=== PATIENT | female | born 1965 | race Caucasian/White ===

== ENCOUNTER 2017-03-15 14:41 | Inpatient (IN) | payer OTHER ==
[~2017-03-15] VITALS: Ht 172.7 cm; Wt 74.8 kg
[~2017-03-15 14:41] MED LIST: ALBUTEROL SULFAT3 M1 INH; PREDNISONE10 MG PO; PRILOSEC 20MG C20 MG PO; SINGULAIR10 MG PO; SPIRIVA1 PUF INH; SYMBICORT 160/41 PUF INH; Senokot S PO; TYLENOL TAB 32325 MG PO
--- NOTE | 2017-03-15 14:44 | NUR ---
O2 90% HR 114
--- NOTE | 2017-03-15 14:54 | NUR ---
PT TO ED FOR C/C OF DIFFICULTY BREATHING SINCE SATURDAY. [facility] TODAY AND GIVEN IV SOLUMEDROL 40MG OF SOLUMEDROL AND A NEB TREATMENT WITHOUT IMPROVEMENT. PT WAS 89% ON RA OVER THERE. +PRODUCTIVE COUGH WITH GREEN PHLEGM. SUBJECTIVE LOW GRADE TEMPS AT HOME. WORSE AT NIGHT.
--- NOTE | 2017-03-15 15:09 | ED DYSPNEA/ASTHMA COMPLAINT ---
History of Present Illness General Chief Complaint: Dyspnea (COPD, CHF, Other) Stated Complaint: SOB Source: patient Exam Limitations: no limitations Vital Signs & Intake/Output Vital Signs & Intake/Output Vital Signs Date Time Temp Pulse Resp B/P B/P Pulse O2 O2 Flow FiO2 Mean Ox Delivery Rate 03/15 2220 98.4 90 18 120/80 92 Nasal 3.0L Cannula 03/15 2018 92 Nasal 3.0L Cannula 03/15 1948 Nasal 3.0L Cannula 03/15 1730 98.4 86 20 121/80 91 Nasal 3.0L Cannula 03/15 1610 97.8 90 18 125/77 92 03/15 1556 Nasal 2.0L Cannula 03/15 1520 88 Room Air Room Air 03/15 1514 90 Room Air Room Air 03/15 1451 98.5 97 15 138/89 90 Room Air Room Air Triage Note: PT TO ED FOR C/C OF DIFFICULTY BREATHING SINCE SATURDAY. [facility] TODAY AND GIVEN IV SOLUMEDROL 40MG OF SOLUMEDROL AND A NEB TREATMENT WITHOUT IMPROVEMENT. PT WAS 89% ON RA OVER THERE. +PRODUCTIVE COUGH WITH GREEN PHLEGM. SUBJECTIVE LOW GRADE TEMPS AT HOME. WORSE AT NIGHT. Triage Nurses Notes Reviewed? yes Onset: Gradual Timing: recent history Severity: severe Prior Episodes/Possible Cause: chronic episodes HPI: Patient is a 51-year-old female with a past medical history of asthma and suspecting COPD, renal cell carcinoma with right nephrectomy who presents emergency and at approximately one week ago she began complaining of a gradual onset of mild cough sore throat and prodromal symptoms of low-grade fever in which she was evaluated on Saturday 5 days ago at urgent care facility was prescribed doxycycline steroids and Tessalon Perles and patient presents to the emergency room stating that she feels much worse. Patient complains of persistent dry cough wheezing pleuritic chest pain shortness of breath and generalized weakness and fatigue. Patient tried multiple nebulizer treatments and Symbicort at home with no relief of symptoms. Patient is an every day smoker Patient does state that her executive search consultant Gerber Javier MD Denies any leg swelling hemoptysis ARM pain jaw pain palpitations (CATIE JOHNSON) Allergies Coded Allergies: Penicillins (CHILDHOOD REACTION 03/15/17) duloxetine (UNKNOWN 03/15/17) lamotrigine (From LAMICTAL) (UNKNOWN 03/15/17) ziprasidone (UNKNOWN 03/15/17) Reconcile Medications Albuterol Sulfate (Proair Hfa) 90 MCG HFA.AER.AD 2 PUF INH Q4-6 PRN PRN COPD (Reported) Budesonide/Formoterol Fumarate (Symbicort 160-4.5 Mcg Inhaler) 160 MCG-4.5 MCG/ ACTUATION HFA.AER.AD 2 PUF INH BID COPD (Reported) Loratadine (Claritin) 10 MG TABLET 1 TAB PO DAILY ALLERGIES (Reported) (GENA MCKNIGHT,RENEE) Past History Travel History Traveled to [place] past 21 day No Medical History Any Pertinent Medical History? see below for history Neurological: NONE EENT: NONE Cardiovascular: NONE Respiratory: asthma Gastrointestinal: NONE Hepatic: NONE Renal: KIDNEY RIGHT NEPHRECTOMY Musculoskeletal: NONE Psychiatric: NONE Endocrine: NONE Blood Disorders: NONE Cancer(s): NONE LAW OFFICE MANAGER/Reproductive: NONE History of MRSA: No History of VRE: No History of CDIFF: No Pneumonia Vaccine: 02/05/12 Surgical History Surgical History: non-contributory Psychosocial History Who do you live with Daughter Services at Home None What is your primary language Maori Tobacco Use: Current Daily Use Daily Tobacco Use Amount/Type: => 5 Cigarettes daily ETOH Use: denies use Illicit Drug Use: denies illicit drug use Family History Family History, If Any: Relation not specified for: *No pertinent family history Hx Contributory? No (CATIE JOHNSON) Review of Systems Review of Systems Constitutional: Reports: see HPI. EENTM: Reports: no symptoms. Respiratory: Reports: see HPI, cough, short of breath, wheezing. Cardiovascular: Reports: see HPI. GI: Reports: no symptoms. Genitourinary: Reports: no symptoms. Musculoskeletal: Reports: no symptoms. Skin: Reports: no symptoms. Neurological/Psychological: Reports: no symptoms. Hematologic/Endocrine: Reports: no symptoms. Immunologic/Allergic: Reports: no symptoms. All Other Systems: Reviewed and Negative (CATIE JOHNSON) Physical Exam Physical Exam General Appearance: no apparent distress, alert, comfortable Respiratory: chest non-tender, no respiratory distress, NOTED PERSISTING COUGHING WITH POSTERIOR BILATERAL AUDITORY WHEEZING Comments: Well-developed well-nourished person in no acute distress HEENT: Normal EENT exam, Neck: Supple, no lymphadenopathy, normal range of motion without pain or tenderness Back: Nontender, no CVA tenderness. Cardiovascular: Regular rate and rhythms no murmurs rubs or gallops, normal JVP Abdomen: Soft, nontender nondistended, no appreciable organomegaly. Normal bowel sounds. No ascites Extremity: No edema, no calf tenderness to palpation, normal and equal pulses. Neuro: Alert oriented x3, motor sensory normal, Skin: No appreciable rash on exposed skin, skin is warm and dry. Psych: Mood and affect is normal, memory and judgment is normal. Core Measures ACS in differential dx? No Severe Sepsis Present: No Septic Shock Present: No (PRUDENCIO HAIDER,CATIE) Progress Differential Diagnosis: asthma, AMI, bronchitis, costochondritis, CHF, COPD, musculoskeletal pain, pericarditis, pulmonary embolism, pneumonia, pneumothorax, rib fracture, unstable angina Plan of Care: Orders Procedure Date/time Status Heart Healthy Diet 03/16 B Active CBC WITHOUT DIFFERENTIAL 03/16 0600 Active BASIC ELECTROLYTES PLUS BUN&CR 03/16 06 Active Vital Signs 03/15 2003 Active Teach/Educate 03/15 2003 Active Pain Treatment and Response 03/15 2003 Active Nutritional Intake, Monitor 03/15 2003 Active Isolation 03/15 2003 Active Intake & Output 03/15 2003 Active Patient Care Conference 03/15 2003 Active Activity/Ambulation 03/15 2003 Active RT: Reevaluation 03/15 1947 Active RT: Evaluation 03/15 194 Active Pathway - chart 03/15 1911 Active OXYGEN SETUP (GEN) 03/15 1711 Complete TRC EVALUATION (GEN) 03/15 1710 Complete Pathway - chart 03/15 1710 Active Patient Data 03/15 1708 Active ED Holding Orders 03/15 1702 Active Admit to inpatient 03/15 1702 Active Vital Signs 03/15 1702 Active Code Status 03/15 1702 Active BLOOD CULTURE 03/15 1646 Active LOWER RESPIRATORY CULTURE 03/15 1621 Active EKG 03/15 1606 Active TROPONIN LEVEL 03/15 1523 Complete COMPREHENSIVE METABOLIC PANEL 03/15 1523 Complete CBC WITHOUT DIFFERENTIAL 03/15 1523 Complete Intake & Output 03/15 1520 Active THERAPIST ORDERS 03/15 UNK Complete House Staff 03/15 UNK Active VTE Mechanical Prophylaxis 03/15 UNK Active Vital Signs 03/15 UNK Complete Current Medications Sig/Vahe Start time Last Medication Dose Stop Time Status Admin Azithromycin 500 MG DAILY 03/16 1000 AC (Zithromax) Sodium Chloride 250 ML (Normal Saline 0.9%) Loratadine 10 MG DAILY 03/16 1000 AC (Claritin) Budesonide/ 2 PUF BID 03/15 2200 AC 03/15 Formoterol Fumarate 2147 (Symbicort) Heparin Sodium 5,000 UNIT Q8 03/15 2200 AC (Porcine) Methylprednisolone 40 MG Q8 03/15 2200 AC 03/15 (Solumedrol) 214 Albuterol Sulfate 3 ML EVERY 4 HRS/AWAKE 03/15 2000 AC 03/15 (Proventil) 194 Ipratropium [place] 2.5 ML EVERY 4 HRS/AWAKE 03/15 2000 AC 03/15 (Atrovent) 194 Acetaminophen 650 MG Q6 PRN 03/15 1915 AC (Tylenol) Morphine Sulfate 0.5 MG Q4-6 PRN PRN 03/15 1915 AC (Morphine) Oxycodone HCl 5 MG Q6 PRN 03/15 1915 AC (Roxicodone) Guaifenesin/Codeine 10 ML Q6P PRN 03/15 183 AC 03/15 Phosphate 2028 (Robitussin AC) Nicotine 21 MG DAILY 03/15 1819 AC 03/15 (Nicoderm) 183 Omeprazole 40 MG DAILY AC 03/15 181 AC (Prilosec) Albuterol Sulfate 2 PUF Q4-6 PRN PRN 03/15 174 AC (Ventolin) Laboratory Tests 03/15/17 1530: Anion Gap 11, Estimated GFR > 60, BUN/Creatinine Ratio 28.9 H, Glucose 102 H, Calcium 10.1, Total Bilirubin 0.5, AST 25, ALT 42, Alkaline Phosphatase 117, Troponin I < 0.01, Total Protein 7.0, Albumin 4.4, Globulin 2.6, Albumin/ Globulin Ratio 1.7, CBC w Diff NO MAN DIFF REQ, RBC 4.82, MCV 84.6, MCH 27.9, RDW 14.1, MPV 6.3 L, Gran % 90.9 H, Lymphocytes % 7.3 L, Monocytes % 1.7, Eosinophils % 0, Basophils % 0.1, Absolute Granulocytes 12.8 H, Absolute Lymphocytes 1.0 L, Absolute Monocytes 0.2, Absolute Eosinophils 0, Absolute Basophils 0, PUBS MCHC 33.0 Microbiology 03/15 1730 BLOOD: Blood Culture - RECD 03/15 1705 BLOOD: Blood Culture - RECD 03/15 1621 LOWER RESP: Respiratory Culture - ORD 03/15 1621 LOWER RESP: Gram Stain - ORD Patient does state that she has no diagnosis of COPD however due to history of present illness and patient's smoking history there is suspicion thereof. Patient currently is resting comfortably at bedside 02 supplementation was provided to patient where she improved her resting 02. Patient had nebulizer treatments and steroids outpatient prior to arrival this week with no improvement in symptoms in which patient has felt outpatient treatment. Patient will be admitted for concerns of COPD and bronchitis (CATIE JOHNSON) Diagnostic Imaging: Viewed by Me: Radiology Read. Radiology Impression: no acute abnormality Initial ED EKG: SINUS RHYTHM NOTED A 82 BPM Comments: PATIENT: KWADWO RECIO PRESENT AGE: 51 PATIENT ACCOUNT NO: [id number] : 67 LOCATION: [facility] ORDERING PHYSICIAN: CATIE HAIDER SERVICE DATE: 03/15/17 EXAM TYPE: RAD - XRY-CHEST XRAY, PA AND LATERAL EXAMINATION: XR CHEST CLINICAL INFORMATION: Productive cough, hypoxia COMPARISON: 03/22/2015 TECHNIQUE: 2 views of the chest were obtained. FINDINGS: The cardiomediastinal silhouette is normal. There is some bronchial wall thickening with no clear infiltrate identified. No pleural effusion and no pneumothorax. No acute osseous abnormalities. IMPRESSION: Bronchial wall thickening suggests underlying bronchitis, no focal consolidation. DICTATED BY: GARY CARR MD DATE/TIME DICTATED:03/15/171607 (CATIE JOHNSON) Departure Departure Disposition: STILL A PATIENT Condition: Stable Referrals: ANKIT HUERTA MD (PCP/Family) Departure Forms: Customer Survey General Discharge Information Admission Note Spoke With: DENEEN HAGAN MD Documentation of Exam: Documentation of any treatments & extenuating circumstances including Concerns Regarding Discharge (functional status, medication knowledge or non-compliance, living conditions, etc.) that warrant an admission rather than observation: [ Discussed patient with Dr. Hagan who agrees with general medicine admission which patient requires IV steroids, repeat nebulizer treatments, antitussive medication and pulmonary consultation. Patient has FAILED outpatient treatment and outpatient treatment would be medically harmful] (CATIE JOHNSON) Departure Clinical Impression Primary Impression: COPD (chronic obstructive pulmonary disease) Secondary Impressions: Bronchitis PA/LOGISTIC MANAGER Co-Sign Statement Statement: ED Attending supervision documentation- [X] I saw and evaluated the patient. I have also reviewed all the pertinent lab results and diagnostic results. I agree with the findings and the plan of care as documented in the PA's/LOGISTIC MANAGER's documentation. [X] I have reviewed the ED Record and agree with the PA's/LOGISTIC MANAGER's documentation. [] Additions or exceptions (if any) to the PAs/LOGISTIC MANAGER's note and plan are summarized below: [] (GENA MCKNIGHT,RENEE) Critical Care Note Critical Care Note Critical Care Time: 30-74 min (CATIE JOHNSON)
--- NOTE | 2017-03-15 15:17 | NUR ---
PT NOTED TO BE SLIGHTLY HYPOXIC 88-89% ON RA AFTER AMBULATION FO APPROX 3 FEET. PT HAS EXPIRATORY WHEEZES BILATERALLY. PT PLACED ON 2L NC OXYGEN WITH IMPROVEMENT TO 92%. RESP CALLED FOR TREATMENT.
--- NOTE | 2017-03-15 15:34 | NUR ---
BLOOD WORK DRAWN AND SENT TO LAB NOW: SST, LAV, BLUE, DRAKE TOPS. XRAY AT BEDSIDE TO TAKE PT FOR TEST.
--- NOTE | 2017-03-15 15:36 | NUR ---
PT REPORTS THAT SHE HAS BEEN ON 20MG PREDNISONE BID AND DOXYCYCLINE SINCE SATURDAY WITHOUT RELIEF.
--- NOTE | 2017-03-15 15:41 | NUR ---
VERO STAPLES ORDERED PER PROVIDER PERMISSION
[2017-03-15 15:44] LABS: ABSOLUTE BASOPHIL COUNT 0 /CUMM (0.0-0.2); ABSOLUTE EOSINOPHIL COUNT 0 /CUMM (0.0-0.7); ABSOLUTE GRANULOCYTE CT 12.8 /CUMM (1.4-6.5); ABSOLUTE MONOCYTE COUNT 0.2 /CUMM (0.10-0.60); BASOPHIL % 0.1 % (0.0-2.0); EOSINOPHIL % 0 % (0-5); HEMATOCRIT 40.7 % (37-47); MEAN CORPUSCULAR HGB 27.9 PG (27.0-31.0); MEAN CORPUSCULAR VOLUME 84.6 FL (81.0-99.0); MEAN PLATELET VOLUME 6.3 FL (7.4-10.4); PLATELET COUNT 220 /CUMM (130-400); RBC DISTRIBUTION WIDTH 14.1 % (11.5-14.5); RED BLOOD CELL CT 4.82 /CUMM (4.20-5.40); WHITE BLOOD CELL COUNT 14.1 /CUMM (4.8-10.8)
[2017-03-15 15:47] LABS: GRANULOCYTE % 90.9 % (42.2-75.2)
--- NOTE | 2017-03-15 16:15 | RADIOLOGY REPORT ---
EXAMINATION: XR CHEST CLINICAL INFORMATION: Productive cough, hypoxia COMPARISON: 03/22/2015 TECHNIQUE: 2 views of the chest were obtained. FINDINGS: The cardiomediastinal silhouette is normal. There is some bronchial wall thickening with no clear infiltrate identified. No pleural effusion and no pneumothorax. No acute osseous abnormalities. IMPRESSION: Bronchial wall thickening suggests underlying bronchitis, no focal consolidation.
--- NOTE | 2017-03-15 17:01 | History & Physical ---
MYRIAM MCKNIGHT,ESTHER 03/15/17 1701: General Information and HPI MD Statement: I have seen and personally examined KWADWO RECOI and documented this H&P. The patient is a 51 year old F who presented with a patient stated chief complaint of [shortness of breath]. Source of Information: patient Exam Limitations: no limitations History of Present Illness: Patient is a 51-year-old current active smoker female with past medical history significant for asthma, renal cell carcinoma status post right nephrectomy, COPD (follows Dr. javier, not on home oxygen), came to the ED with progressive worsening of shortness of breath, prior to cough, low-grade fevers. Symptoms started a week ago gradually with mild cough, sore throat, with a prodrome of low-grade fever. Patient was evaluated in urgent care on Saturday (03/11/17) where she was given IV Solu-Medrol 40 mg, Tessalon Perles, doxycycline and steroids to home. Her condition remained to get worse still had progressive cough with low- grade fevers and pleuritic chest pain. Patient does report seasonal allergies which could be the inciting event. She smokes one pack per day for the past 30 years, stopped since Saturday. She denies any sick contacts, travels, headaches. Current active smoker Family history of multiple sclerosis in mother, of pneumonia, sister with asthma Allergies/Medications Allergies: Coded Allergies: Penicillins (CHILDHOOD REACTION 03/15/17) duloxetine (UNKNOWN 03/15/17) lamotrigine (From LAMICTAL) (UNKNOWN 03/15/17) ziprasidone (UNKNOWN 03/15/17) Home Med list Albuterol Sulfate (Proair Hfa) 90 MCG HFA.AER.AD 2 PUF INH Q4-6 PRN PRN COPD (Reported) Budesonide/Formoterol Fumarate (Symbicort 160-4.5 Mcg Inhaler) 160 MCG-4.5 MCG/ ACTUATION HFA.AER.AD 2 PUF INH BID COPD (Reported) Loratadine (Claritin) 10 MG TABLET 1 TAB PO DAILY ALLERGIES (Reported) Compliance With Home Meds: GOOD Past History Travel History Traveled to [place] past 21 day No (in the lower) Medical History Any Pertinent Medical History? unobtainable Neurological: NONE EENT: NONE Cardiovascular: NONE Respiratory: asthma Gastrointestinal: NONE Hepatic: NONE Renal: KIDNEY RIGHT NEPHRECTOMY Musculoskeletal: NONE Psychiatric: NONE Endocrine: NONE Blood Disorders: NONE Cancer(s): NONE PAPER TUBE GRADER/Reproductive: NONE History of MRSA: No History of VRE: No History of CDIFF: No Pneumonia Vaccine: 02/05/12 Surgical History Surgical History: non-contributory Past Family/Social History Family History Relations & Conditions if any Relation not specified for: *No pertinent family history Psychosocial History Past Psychosocial History Unobtainable at this time Where do you live? Home Who Do You Live With? self Services at Home: None Smoking Status: Current Everyday Smoker (is) ETOH Use: denies use Illicit Drug Use: denies illicit drug use Functional Ability ADLs Independent: dressing, eating, toileting, bathing. Ambulation: independent IADLs Independent: shopping, housework, finances, food prep, telephone, transportation , medication admin. Review of Systems Review of Systems Constitutional: Reports: see HPI. EENTM: Reports: see HPI (no acute). Cardiovascular: Reports: chest pain. Respiratory: Reports: cough, short of breath, sputum production. GI: Reports: see HPI. Genitourinary: Reports: see HPI. Musculoskeletal: Reports: see HPI. Exam & Diagnostic Data Last 24 Hrs of Vital Signs/I&O Vital Signs Date Time Temp Pulse Resp B/P B/P Pulse O2 O2 Flow FiO2 Mean Ox Delivery Rate 03/15 1948 Nasal 3.0L Cannula 03/15 1730 98.4 86 20 121/80 91 Nasal 3.0L Cannula 03/15 1610 97.8 90 18 125/77 92 03/15 1556 Nasal 2.0L Cannula 03/15 1520 88 Room Air Room Air 03/15 1514 90 Room Air Room Air 03/15 1451 98.5 97 15 138/89 90 Room Air Room Air Intake & Output 03/15 1600 03/15 0800 03/15 0000 Intake Total 0 Output Total Balance 0 Intake, Oral 0 Patient 74.843 kg Weight Weight Reported by Patient Measurement Method Physical Exam General Appearance Alert, Oriented X3, Cooperative, No Acute Distress Skin No Rashes, No Breakdown HEENT Atraumatic, PERRLA, EOMI Neck Supple, No JVD Cardiovascular Normal S1, Normal S2 Lungs rhonchus bilaterally (Prominent on right side) with significant wheezing Abdomen Normal Bowel Sounds, Soft, No Tenderness Neurological Normal Gait, Normal Speech, Strength at 5/5 X4 Ext, Normal Tone, Sensation Intact Extremities No Clubbing, No Cyanosis, No Edema Vascular Normal Pulses, Pulses Symmetrical Last 24 Hrs of Labs/Francesco: Laboratory Tests 03/15/17 1530: Anion Gap 11, Estimated GFR > 60, BUN/Creatinine Ratio 28.9 H, Glucose 102 H, Calcium 10.1, Total Bilirubin 0.5, AST 25, ALT 42, Alkaline Phosphatase 117, Troponin I < 0.01, Total Protein 7.0, Albumin 4.4, Globulin 2.6, Albumin/ Globulin Ratio 1.7, CBC w Diff NO MAN DIFF REQ, RBC 4.82, MCV 84.6, MCH 27.9, RDW 14.1, MPV 6.3 L, Gran % 90.9 H, Lymphocytes % 7.3 L, Monocytes % 1.7, Eosinophils % 0, Basophils % 0.1, Absolute Granulocytes 12.8 H, Absolute Lymphocytes 1.0 L, Absolute Monocytes 0.2, Absolute Eosinophils 0, Absolute Basophils 0, PUBS MCHC 33.0 Microbiology 03/15 1730 BLOOD: Blood Culture - RECD 03/15 1705 BLOOD: Blood Culture - RECD 03/15 1621 LOWER RESP: Respiratory Culture - ORD 03/15 1621 LOWER RESP: Gram Stain - ORD Assessment/Plan Assessment: Patient is a 16-year-old female with significant history of asthma, COPD and seasonal allergies presented with progressive worsening of shortness of breath productive cough and low-grade fevers. On examination significant wheezing with right-sided rhonchi present. Vitals Tmax of 98.5, pulse 97, on 3 L nasal cannula. Leukocytosis with white count of 14. Chest x-ray significant for bronchial wall thickening suggestive of bronchitis without any focal consolidation. At this point I lean towards COPD exacerbation from acute bronchitis. Admitted to general medicine floor COPD exacerbation in the setting of acute bronchitis * Chest x-ray ruled out any consolidation, didn't show bronchial thickening * Received IV Solu-Medrol 125 mg, inhalers, IV mag sulfate in the ED, started on 40 mg every 8 hours * IV azithromycin * Robitussin, guaifenesin for productive cough * TRC/nebs * Pulmonary consult in a.m. (alejandro Javier MD) GERD * Continue omeprazole Nicotine dependence * Nicotine patch 21 mg daily * History of 1 pack per day for the past 30 years Seasonal allergies * Continue daily loratadine Pain control * Tylenol/morphine sulfate 0.5 mg every 4-6 IV/oxycodone 5 mg every 6 when necessary DVT prophylaxis * Subcutaneous heparin CODE STATUS * Full code As Ranked By This Provider Problem List: 1. ASTHMA EXACERBATION 2. RENAL CELL CA 3. Asthma 4. COPD (chronic obstructive pulmonary disease) 5. Bronchitis Core Measures/Miscellaneous Acute Coronary Syndrome ACS Diagnosis: No Cerebrovascular Accident CVA/TIA Diagnosis: No Congestive Heart Failure CHF Diagnosis: No VTE (View Protocol) VTE Risk Factors: Age > [address] [facility] VTE prophylaxis d/t: No contraindications No VTE Pharm Prophylaxis d/t: No contraindications VTE Diagnosis: No VTE Type: NONE VTE Confirmed by (Test): NONE Sepsis (View Protocol) Severe Sepsis Present: No Septic Shock Septic Shock Present: No Miscellaneous Documentation Attending Case Discussed With: DENEEN SIDDIQUI MD Primary Care Physician: ANKIT HUERTA MD Patient sees these Specialists Level of Patient Care: General Medicine DENEEN SIDDIQUI 03/15/17 1703: Attending MD Review Statement Attending Statement Attending MD Statement: examined this patient, discuss w/resident/PA/COLD STORAGE WORKER, agreed w/resident/PA/COLD STORAGE WORKER, discussed with family, reviewed EMR data (avail), discussed with nursing, discussed with case mgmt, reviewed images, amended to note Attending Assessment/Plan: 51 o/f ASSESSMENT 1. COPD exacerbation 2/2 bronchitis 2. Acute hypoxemic respiratory failure 3. GERD 4. Status post right nephrectomy due to renal cell carcinoma 5. Tobacco use PLAN Admit to inpatient medical services i/v steroids, i/v abx azithromycin, bronchodilators, (uses symbicort at home), o2 supplementation, pulm consult. resume home meds gi/dvt prophyalxis full code tobacco cessation counselling plan of care d/wed patient bedside in ER tts>37 min. NAVEEN DAI MD,JEN 03/15/17 5439: Resident Review Statement Resident Statement: examined this patient, agreed with it intern, reviewed EMR data (avail) Other Findings: 51-year-old lady with past medical history of asthma, history of COPD not oxygen dependent, renal cell carcinoma status post right nephrectomy came to emergency department for chief complaint of gradual onset of mild cough, sore throat, low- grade fever. Patient went to an urgent care facility 5 days ago and was prescribed doxycycline, steroids and Tessalon Perles. Patient did not have any improvement and called Gerber Javier MD's office today. She is told to go to the wellness clinic where she got 40 mg of IV steroids. Despite that she did not feel well and therefore decided to come to emergency department. Vitals in emergency department patient afebrile, tachycardia 97, no tachypnea, systolic blood pressure 125-138, diastolic 77-89, oxygen saturation of 88% on room air and thus patient was changed to nasal cannula 2 L. On examination, patient was alert and oriented to time person place, in mild distress because of constant cough laying in the bed. S1 and S2 audible without any murmurs, lungs examination was significant for right-sided wheezing and decreased air entry on the left, benign abdominal and neurological examination. Labs were significant for leukocytosis of 14.1, granulocytes 90.9, no significant electrolyte abnormalities, BUN of 26, troponin less than 0.01. Blood culture and respiratory cultures sent. Chest x-ray showed Bronchial wall thickening suggests underlying bronchitis, no focal consolidation. Patient was admitted on general medicine floor for the management of following problems #1 acute hypoxemic respiratory failure #2 acute bronchitis failed outpatient therapy #3 leukocytosis #4 history of renal cell carcinoma status post right nephrectomy #5 current smoker Acute hypoxemic respiratory failure status/acute bronchitis failed outpatient therapy - Inciting event likely secondary to history of URTI vs Worseneing of disease. - Currently Afebrile - Hemodynamically stable - Admit to General Medicine Floor - Vitals Q shift - Oxygen by nasal canula as required, taper as tolerated - Start Tiotropium Inhaler 1 puff daily - Start Symicort Inhaler 2 puffs inhaler BID - Strat IV Steroids Methylprednisone 40mg Q8 IV - Taper Steroids with clinical improvement - Start 500mg IV Zithromax for COPD exacerbation - TRC Nebs as needed - Patient counselled about smoking - Nicotine patch - Pulmo Consult Leukocytosis Likely secondary to recent by mouth steroid use. We'll hold off antibiotics for now. Follow-up lower respiratory cultures and blood cultures Patient is full code Patient is on heparin for DVT prophylaxis Patient is on pain management Patient is a heart healthy
--- NOTE | 2017-03-15 17:04 | NUR ---
SPOKE WITH PHARMACIST WHO CONFIRMED ZITHROMAX AND IV MAG ARE COMPATIBLE TO RUN TOGETHER.
--- NOTE | 2017-03-15 17:11 | NUR ---
PT 90% ON 2L NC OXYGEN. OXYGEN TITRATED TO 3L. WILL CONTINUE TO MONITOR.
[2017-03-15] MEDS ORDERED: BENZONATATE200 M1 PO (17:17)
[2017-03-15] MEDS ORDERED: DOXYCYCLINE HY100 M2 PO (17:17)
[2017-03-15] MEDS ORDERED: PREDNISONE20 M1 PO (17:17)
[2017-03-15] MEDS ORDERED: SYMBICORT 16010.2 GM INH (17:18)
[2017-03-15] MEDS ORDERED: PROAIR HFA8.5 GM INH (17:18)
[2017-03-15] MEDS ORDERED: CLARITIN10 M1 PO (17:21)
--- NOTE | 2017-03-15 17:28 | NUR ---
DINNER TRAY ORDERED FOR PT.
--- NOTE | 2017-03-15 18:17 | NUR ---
HOUSE STAFF PAGED.
--- NOTE | 2017-03-15 18:22 | NUR ---
PT ASSIGNED TO ROOM 216 BED 2
--- NOTE | 2017-03-15 18:44 | NUR ---
REPORT GIVEN TO JAQUELINE LUCAS.
--- NOTE | 2017-03-15 19:04 | NUR ---
KWADWO RECIO Nurse Note by: CINDY COLEY I agree with the TRANSFORMER INSPECTOR findings/evaluation of this patient's condition. Entered by: CINDY COLEY Date: 03/15/17 Time: 1904
--- NOTE | 2017-03-15 19:13 | Cons- Pulmonary ---
NAVEEN DAI MD,JEN 03/15/171911: General Information and HPI Consulting Request Date of Consult: 03/16/17 Requested By: Gilberto Nieto MD Reason for Consult: Acute bronchitis Source of Information: patient, old records Exam Limitations: no limitations History of Present Illness: 51-year-old lady with past medical history of asthma, history of COPD not oxygen dependent, renal cell carcinoma status post right nephrectomy came to emergency department for chief complaint of gradual onset of mild cough, sore throat, low- grade fever. Patient recently went to an urgent care facility 5 days ago and was prescribed doxycycline, steroids and Tessalon Perles. Patient did not have any improvement and called Gerber Javier MD's office today. She is told to go to the [facility] clinic where she got 40 mg of IV steroids. Despite that she did not feel well and therefore decided to come to emergency department. Review of system was positive for postnasal drip, pleuritic chest pain and shortness of breath on exertion. Review of system was negative for any headaches, acute visual changes, nausea, vomiting, fever, rash, sick contacts, recent travel, upper respiratory tract symptoms, diarrhea, constipation, change in urinary habits, or lower extremity swelling. Allergies/Medications Allergies: Coded Allergies: Penicillins (CHILDHOOD REACTION 03/15/17) duloxetine (UNKNOWN 03/15/17) lamotrigine (From LAMICTAL) (UNKNOWN 03/15/17) ziprasidone (UNKNOWN 03/15/17) Home Med List: Albuterol Sulfate (Proair Hfa) 90 MCG HFA.AER.AD 2 PUF INH Q4-6 PRN PRN COPD (Reported) Budesonide/Formoterol Fumarate (Symbicort 160-4.5 Mcg Inhaler) 160 MCG-4.5 MCG/ ACTUATION HFA.AER.AD 2 PUF INH BID COPD (Reported) Loratadine (Claritin) 10 MG TABLET 1 TAB PO DAILY ALLERGIES (Reported) Current Medications: Current Medications Sig/Vahe Start time Last Medication Dose Route Stop Time Status Admin Acetaminophen 650 MG Q6 PRN 03/15 1915 AC PO Albuterol Sulfate 3 ML EVERY 4 HRS/AWAKE 03/15 2000 AC 03/15 INH 194 Albuterol Sulfate 2 PUF Q4-6 PRN PRN 03/15 1745 AC INH Albuterol Sulfate 3 ML ONCE ONE 03/15 1545 DC 03/15 INH 03/15 1546 1547 Azithromycin 500 MG DAILY 03/16 1000 AC Sodium Chloride 250 ML IV Azithromycin 500 MG ONCE ONE 03/15 1615 DC 03/15 Sodium Chloride 250 ML IV 03/15 1714 1726 Budesonide/ 2 PUF BID 03/15 2200 AC 03/15 Formoterol Fumarate INH 2147 Guaifenesin/Codeine 10 ML Q6P PRN 03/15 1830 AC 03/15 Phosphate PO 2029 Guaifenesin/Codeine 10 ML ONCE ONE 03/15 1615 DC 03/15 Phosphate PO 03/15 1616 1637 Heparin Sodium 5,000 UNIT Q8 03/15 2200 AC (Porcine) SC Ipratropium [place] 2.5 ML EVERY 4 HRS/AWAKE 03/15 2000 AC 03/15 INH 1943 Ipratropium [place] 2.5 ML ONCE ONE 03/15 1545 DC 03/15 INH 03/15 1546 1547 Loratadine 10 MG DAILY 03/16 1000 AC PO Magnesium Sulfate 1 GM ONCE ONE 03/15 1615 DC 03/15 Dextrose/Water 100 ML IV 03/15 2014 1702 Methylprednisolone 40 MG Q8 03/15 2200 AC 03/15 IV 2146 Methylprednisolone 0 .STK-MED ONE 03/15 1628 DC .ROUTE Methylprednisolone 125 MG ONCE ONE 03/15 1615 DC 03/15 IV 03/15 1616 1637 Morphine Sulfate 0.5 MG Q4-6 PRN PRN 03/15 1915 IV Nicotine 0 .STK-MED ONE 03/15 1839 DC TOP Nicotine 21 MG DAILY 03/15 1819 AC 03/15 TOP 1838 Omeprazole 40 MG DAILY AC 03/15 1815 AC PO Oxycodone HCl 5 MG Q6 PRN 03/15 191 AC PO Review of Systems Review of Systems Constitutional: Denies: chills, fever. Cardiovascular: Reports: chest pain. Denies: palpitations. Respiratory: Reports: cough, short of breath. GI: Denies: abdominal pain, nausea, vomiting. Genitourinary: Denies: discharge. Musculoskeletal: Denies: back pain, joint pain. All Other Systems: Reviewed and Negative Past History Travel History Traveled to [place] past 21 day No Medical History Neurological: NONE EENT: NONE Cardiovascular: NONE Respiratory: asthma, COPD Gastrointestinal: NONE Hepatic: NONE Renal: KIDNEY RIGHT NEPHRECTOMY Musculoskeletal: NONE Psychiatric: NONE Endocrine: NONE Blood Disorders: NONE Cancer(s): RENAL CANCER PARTS REPRESENTATIVE/Reproductive: NONE Surgical History Surgical History: non-contributory Family History Relations & Conditions If Any: Relation not specified for: *No pertinent family history Psychosocial History Services at Home: None ETOH Use: denies use Illicit Drug Use: denies illicit drug use Functional Ability ADLs Independent: dressing, eating, toileting, bathing. Ambulation: independent IADLs Independent: shopping, housework, finances, food prep, telephone, transportation , medication admin. Exam & Diagnostic Data Last 24 Hrs of Vital Signs/I&O Vital Signs Date Time Temp Pulse Resp B/P B/P Pulse O2 O2 Flow FiO2 Mean Ox Delivery Rate 03/15 2220 98.4 90 18 120/80 92 Nasal 3.0L Cannula 03/15 2018 92 Nasal 3.0L Cannula 03/15 1948 Nasal 3.0L Cannula 03/15 1730 98.4 86 20 121/80 91 Nasal 3.0L Cannula 03/15 1610 97.8 90 18 125/77 92 03/15 1556 Nasal 2.0L Cannula 03/15 1520 88 Room Air Room Air 03/15 1514 90 Room Air Room Air 03/15 1451 98.5 97 15 138/89 90 Room Air Room Air Intake & Output 03/16 0800 03/16 0000 03/15 1600 Intake Total 0 Output Total Balance 0 Intake, Oral 0 Patient 165 lb 165 lb Weight Weight Reported by Patient Reported by Patient Measurement Method Physical Exam General Appearance: well developed/nourished, awake, anxious, mild distress Head: atraumatic Ears, Nose, Throat: Postnasal drip Neck: normal inspection, supple Respiratory: decreased breath sounds, wheezing Cardiovascular: regular rate/rhythm Gastrointestinal: normal bowel sounds, soft, non-tender Back: normal inspection Extremities: no edema Neurologic/Psych: no motor/sensory deficits, awake, alert, oriented x 3 Cranial Nerves: normal hearing, normal speech Last 48 Hrs of Labs/Francesco: Laboratory Tests 03/15/17 1530: Anion Gap 11, Estimated GFR > 60, BUN/Creatinine Ratio 28.9 H, Glucose 102 H, Calcium 10.1, Total Bilirubin 0.5, AST 25, ALT 42, Alkaline Phosphatase 117, Troponin I < 0.01, Total Protein 7.0, Albumin 4.4, Globulin 2.6, Albumin/ Globulin Ratio 1.7, CBC w Diff NO MAN DIFF REQ, RBC 4.82, MCV 84.6, MCH 27.9, RDW 14.1, MPV 6.3 L, Gran % 90.9 H, Lymphocytes % 7.3 L, Monocytes % 1.7, Eosinophils % 0, Basophils % 0.1, Absolute Granulocytes 12.8 H, Absolute Lymphocytes 1.0 L, Absolute Monocytes 0.2, Absolute Eosinophils 0, Absolute Basophils 0, PUBS MCHC 33.0 Diagnostic Data CXR Results Bronchial wall thickening suggests underlying bronchitis, no focal consolidation. Assessment/Plan Impression/Plan: 51-year-old lady with past medical history of asthma, history of COPD not oxygen dependent, renal cell carcinoma status post right nephrectomy admitted on general medicine floor with chief complain of mild cough, sore throat, low-grade fever and shortness of breath on exertion with failed outpatient antibiotic and steroid therapy. Labs were significant for leukocytosis of 14.1, granulocytes 90.9, no significant electrolyte abnormalities, BUN of 26, troponin less than 0.01. Blood culture and respiratory cultures sent. Patient is being managed for the following problems #1 Acute hypoxemic respiratory failure #2 Acute bronchitis failed outpatient therapy #3 Leukocytosis #4 History of renal cell carcinoma status post right nephrectomy #5 Current smoker Acute hypoxemic respiratory failure status/acute bronchitis failed outpatient therapy - Inciting event likely secondary to history of URTI vs Worseneing of disease. - Currently Afebrile - Hemodynamically stable - Admit to General Medicine Floor - Vitals Q shift - Oxygen by nasal canula as required, taper as tolerated - Start Tiotropium Inhaler 1 puff daily - Start Symicort Inhaler 2 puffs inhaler BID - Strat IV Steroids Methylprednisone 40mg Q8 IV - Taper Steroids with clinical improvement - Start 500mg IV Zithromax for anti-inflammatory effect - Robitussin with codeine for persistent cough - TRC Nebs as needed - Patient counselled about smoking - Nicotine patch - Pulmo Consult Leukocytosis Likely secondary to recent by mouth steroid use. We'll hold off antibiotics for now. Follow-up lower respiratory cultures and blood cultures Patient is full code Patient is on heparin for DVT prophylaxis Patient is on pain management Patient is a heart healthy Recommendations: As above Problem List: 1. Bronchitis 2. COPD (chronic obstructive pulmonary disease) Consult Acknowledgment - Thank you for your consult request. MARK MCKNIGHT,Gerber BRAGG 03/17/17 1142: Assessment/Plan Other Findings/Comments: I have personally seen and examined the patient and agree with the assessment and plan as detailed above. I have discussed the case with the housestaff in detail. We will continue the current therapy as recommended. Consult Acknowledgment - Thank you for your consult request.
[2017-03-15 22:20] VITALS: BP 120/80
[2017-03-16 07:19] VITALS: BP 120/80
--- NOTE | 2017-03-16 07:58 | PN- Housestaff ---
GERBER MCKNIGHT,DAYAMI 03/16/17 0758: Subjective Follow-up For: Acute hypoxic respiratory failure Subjective: Patient is seen and examined at bedside. He still endorses shortness of breath, cough and wheezes. She reports Robitussin-AC provided that with symptomatic relief from a cough.is does deny any chest pain, palpitation, fever, chills, nausea, vomiting, abdominal pain or dysuria. No acute overnight nursing report noted. Review of Systems Constitutional: Reports: see HPI. Objective Last 24 Hrs of Vital Signs/I&O Vital Signs Date Time Temp Pulse Resp B/P B/P Pulse O2 O2 Flow FiO2 Mean Ox Delivery Rate 03/16 0822 93 Nasal 3.0L Cannula 03/16 0719 98.0 72 20 120/80 94 03/16 0000 Nasal 3.0L Cannula 03/15 2220 98.4 90 18 120/80 92 Nasal 3.0L Cannula 03/15 2018 92 Nasal 3.0L Cannula 03/15 1948 Nasal 3.0L Cannula 03/15 1730 98.4 86 20 121/80 91 Nasal 3.0L Cannula 03/15 1610 97.8 90 18 125/77 92 03/15 1556 Nasal 2.0L Cannula 03/15 1520 88 Room Air Room Air 03/15 1514 90 Room Air Room Air 03/15 1451 98.5 97 15 138/89 90 Room Air Room Air Intake & Output 03/16 1600 03/16 0800 03/16 0000 Intake Total 20 250 Output Total Balance 20 250 Intake, IV 20 250 Patient 74.843 kg Weight Weight Reported by Patient Measurement Method Physical Exam General Appearance: Alert, Oriented X3, Cooperative Other Physical Findings: Neck: normal inspection, supple Respiratory: diffuse b/l expiratory wheezing Cardiovascular: regular rate/rhythm Gastrointestinal: normal bowel sounds, soft, non-tender Back: normal inspection Extremities: no edema Neurologic/Psych: no motor/sensory deficits, awake, alert, oriented x 3 Cranial Nerves: normal hearing, normal speech Current Medications: Current Medications Sig/Vahe Start time Last Medication Dose Route Stop Time Status Admin Acetaminophen 650 MG Q6 PRN 03/15 191 AC PO Albuterol Sulfate 3 ML EVERY 4 HRS/AWAKE 03/15 2000 AC 03/16 INH 1150 Albuterol Sulfate 2 PUF Q4-6 PRN PRN 03/15 1745 AC INH Albuterol Sulfate 3 ML ONCE ONE 03/15 1545 DC 03/15 INH 03/15 1546 1547 Azithromycin 500 MG DAILY 03/16 1000 AC 03/16 Sodium Chloride 250 ML IV 0916 Azithromycin 500 MG ONCE ONE 03/15 1615 DC 03/15 Sodium Chloride 250 ML IV 03/15 1714 1726 Budesonide/ 2 PUF BID 03/15 2200 AC 03/16 Formoterol Fumarate INH 0917 Guaifenesin/Codeine 10 ML Q6P PRN 03/15 1830 AC 03/16 Phosphate PO 0917 Guaifenesin/Codeine 10 ML ONCE ONE 03/15 1615 DC 03/15 Phosphate PO 03/15 1616 1637 Heparin Sodium 5,000 UNIT Q8 03/15 2200 AC (Porcine) SC Ipratropium [place] 2.5 ML EVERY 4 HRS/AWAKE 03/15 2000 AC 03/16 INH 1150 Ipratropium [place] 2.5 ML ONCE ONE 03/15 1545 DC 03/15 INH 03/15 1546 1547 Loratadine 10 MG DAILY 03/16 1000 AC 03/16 PO 0916 Magnesium Sulfate 1 GM ONCE ONE 03/15 1615 DC 03/15 Dextrose/Water 100 ML IV 03/15 2014 1702 Methylprednisolone 40 MG Q8 03/15 2200 AC 03/16 IV 0704 Methylprednisolone 0 .STK-MED ONE 03/15 1628 DC .ROUTE Methylprednisolone 125 MG ONCE ONE 03/15 1615 DC 03/15 IV 03/15 1616 1637 Morphine Sulfate 0.5 MG Q4-6 PRN PRN 03/15 1915 IV Nicotine 0 .STK-MED ONE 03/15 1839 DC TOP Nicotine 21 MG DAILY 03/15 1819 03/15 TOP 1838 Omeprazole 40 MG DAILY AC 03/15 1815 AC 03/16 PO 0704 Oxycodone HCl 5 MG Q6 PRN 03/15 1915 AC 03/16 PO 0939 Last 24 Hrs of Lab/Francesco Results Last 24 Hrs of Labs/Mics: Laboratory Tests 03/16/17 0645: Anion Gap 9, Estimated GFR > 60, BUN/Creatinine Ratio 35.0 H, CBC w Diff NO MAN DIFF REQ, RBC 4.42, MCV 85.9, MCH 28.4, RDW 14.1, MPV 6.7 L, Gran % 88.0 H, Lymphocytes % 9.1 L, Monocytes % 2.4, Eosinophils % 0.4, Basophils % 0.1, Absolute Granulocytes 8.7 H, Absolute Lymphocytes 0.9 L, Absolute Monocytes 0.2, Absolute Eosinophils 0, Absolute Basophils 0, PUBS MCHC 33.0 03/15/17 1530: Anion Gap 11, Estimated GFR > 60, BUN/Creatinine Ratio 28.9 H, Glucose 102 H, Calcium 10.1, Total Bilirubin 0.5, AST 25, ALT 42, Alkaline Phosphatase 117, Troponin I < 0.01, Total Protein 7.0, Albumin 4.4, Globulin 2.6, Albumin/ Globulin Ratio 1.7, CBC w Diff NO MAN DIFF REQ, RBC 4.82, MCV 84.6, MCH 27.9, RDW 14.1, MPV 6.3 L, Gran % 90.9 H, Lymphocytes % 7.3 L, Monocytes % 1.7, Eosinophils % 0, Basophils % 0.1, Absolute Granulocytes 12.8 H, Absolute Lymphocytes 1.0 L, Absolute Monocytes 0.2, Absolute Eosinophils 0, Absolute Basophils 0, PUBS MCHC 33.0 Microbiology 03/15 1730 BLOOD: Blood Culture - RECD 03/15 1705 BLOOD: Blood Culture - RECD 03/15 1621 LOWER RESP: Respiratory Culture - COLB 03/15 162 LOWER RESP: Gram Stain - COLB Assessment/Plan Assessment: This is a 11-year-old lady with a past medical history significant for asthma, COPD not on home oxygen, renal cell carcinoma with right nephrectomy, presented with clinical symptoms of illness of breath, low-grade fever, sore throat, in the setting a recent acute bronchitis refractory to outpatient therapy. Impression and plan #Acute hypoxemic respiratory failure Currently requires 2 L to keep sats above 90%, not on home oxygen. Likely etiology of patient respiratory failure is the recent upper respiratory infection that is also exacerbating obstructive respiratory disease. Continue with O2 supplementation, and taper off appropriately. #Acute exacerbation of COPD/Asthma This is in the setting of the recent upper respiratory infection . Patient still has clinical signs of diffuse bilateral wheezes and therefore we'll continue current Solu-Medrol dose of 40 mg every 12h. Until azithromycin for inflammatory purposes, day 2. We'll continue TRC nebs. #Leukocytosis. Downtrending. In the setting of steroid use most likely due margination rather than infectious etiology. #Tobacco abuse Providing smoking cessation counseling Nicotine patch #History of renal cell carcinoma Stable. Continue to trend kidney functions and CBC. Problem List: 1. Bronchitis 2. Asthma 3. RENAL CELL CA 4. COPD (chronic obstructive pulmonary disease) Pain Ratin Pain Location: none Pain Goal: Remain pain free Pain Plan: per pathway Tomorrow's Labs & Rationales: cbc bep DENEEN SIDDIQUI 03/16/17 0938: Attending MD Review Statement Attending Statement Attending MD Statement: examined this patient, discuss w/resident/PA/PEDIATRIC ANESTHESIOLOGIST, agreed w/resident/PA/PEDIATRIC ANESTHESIOLOGIST, discussed with family, reviewed EMR data (avail), discussed with nursing, discussed with case mgmt, reviewed images, amended to note Attending Assessment/Plan: ASSESSMENT 1. COPD exacerbation 2/2 bronchitis 2. Acute hypoxemic respiratory failure 3. GERD 4. Status post right nephrectomy due to renal cell carcinoma 5. Tobacco use PLAN Admit to inpatient medical services i/v steroids, i/v abx azithromycin, bronchodilators, (uses symbicort at home), o2 supplementation, pulm consulted resume home meds gi/dvt prophyalxis full code tobacco cessation counselling plan of care d/wed patient bedside in ER tts>37 min.
[2017-03-16 08:18] LABS: ABSOLUTE BASOPHIL COUNT 0 /CUMM (0.0-0.2); ABSOLUTE EOSINOPHIL COUNT 0 /CUMM (0.0-0.7); ABSOLUTE GRANULOCYTE CT 8.7 /CUMM (1.4-6.5); ABSOLUTE LYMPH COUNT 0.9 /CUMM (1.2-3.4); ABSOLUTE MONOCYTE COUNT 0.2 /CUMM (0.10-0.60); BASOPHIL % 0.1 % (0.0-2.0); EOSINOPHIL % 0.4 % (0-5); MEAN CORPUSCULAR HGB 28.4 PG (27.0-31.0); MEAN CORPUSCULAR VOLUME 85.9 FL (81.0-99.0); MEAN PLATELET VOLUME 6.7 FL (7.4-10.4); PLATELET COUNT 194 /CUMM (130-400); RBC DISTRIBUTION WIDTH 14.1 % (11.5-14.5); RED BLOOD CELL CT 4.42 /CUMM (4.20-5.40); WHITE BLOOD CELL COUNT 9.9 /CUMM (4.8-10.8)
[2017-03-16 14:02] VITALS: BP 110/60
[2017-03-16 22:41] VITALS: BP 125/82
[2017-03-17 06:00] VITALS: BP 130/80
--- NOTE | 2017-03-17 07:20 | PN- Housestaff ---
MEDINA MCKNIGHT,[facility] 03/17/17 0719: Subjective Follow-up For: Acute hypoxic respiratory failure Subjective: Miss Rahman was seen and examined this morning. She is resting comfortably on bed. Denies any issues overnight. She is currently coming to the end of her breathing treatment. States that she feels better although continues to endorse a cough. Cough is nonproductive in nature. States that her wheezing is drastically improved. She requests that her diet to be changed from a heart healthy to regular diet. She denies any fever, chills, nausea, vomiting. Review of Systems Constitutional: Reports: see HPI. Objective Last 24 Hrs of Vital Signs/I&O Vital Signs Date Time Temp Pulse Resp B/P B/P Pulse O2 O2 Flow FiO2 Mean Ox Delivery Rate 03/17 0800 95 Nasal 3.0L Cannula 03/17 0600 98.1 82 22 130/80 95 Nasal 3.0L Cannula 03/17 0000 Nasal 2.0L Cannula 03/16 2241 98.6 94 20 125/82 94 Room Air 03/16 1629 93 Nasal 3.0L Cannula 03/16 1600 Nasal 3.0L Cannula 03/16 1402 98.3 89 20 110/60 95 Nasal 3.0L Cannula Intake & Output 03/17 1600 03/17 0800 03/17 0000 Intake Total 400 400 Output Total Balance 400 400 Intake, Oral 400 400 Physical Exam General Appearance: Alert, Oriented X3, Cooperative Cardiovascular: Regular Rate, Normal S1, Normal S2 Lungs: expiratory wheezing Abdomen: Normal Bowel Sounds, Soft, No Tenderness Neurological: Normal Gait, Normal Speech, Strength at 5/5 X4 Ext Extremities: No Edema Vascular: Normal Pulses Current Medications: Current Medications Sig/Vahe Start time Last Medication Dose Route Stop Time Status Admin Acetaminophen 650 MG Q6 PRN 03/15 1915 AC PO Albuterol Sulfate 3 ML EVERY 4 HRS/AWAKE 03/15 2000 AC 03/17 INH 0757 Albuterol Sulfate 2 PUF Q4-6 PRN PRN 03/15 1745 AC 03/16 INH 2348 Azithromycin 500 MG DAILY 03/16 1000 AC 03/16 Sodium Chloride 250 ML IV 0916 Budesonide/ 2 PUF BID 03/15 2200 AC 03/17 Formoterol Fumarate INH 0928 Guaifenesin/Codeine 10 ML Q6P PRN 03/15 1830 AC 03/17 Phosphate PO 0533 Heparin Sodium 5,000 UNIT Q8 03/15 220 AC (Porcine) SC Ipratropium [place] 2.5 ML EVERY 4 HRS/AWAKE 03/15 2000 AC 03/17 INH 0757 Loratadine 10 MG DAILY 03/16 1000 AC 03/17 PO 0928 Methylprednisolone 40 MG Q8 03/15 2200 AC 03/17 IV 0533 Morphine Sulfate 0.5 MG Q4-6 PRN PRN 03/15 1915 AC IV Nicotine 21 MG DAILY 03/15 1819 AC 03/16 TOP 2128 Omeprazole 40 MG DAILY AC 03/15 181 AC 03/17 PO 0533 Oxycodone HCl 5 MG Q6 PRN 03/15 191 AC 03/17 PO 0934 Last 24 Hrs of Lab/Francesco Results Last 24 Hrs of Labs/Mics: Laboratory Tests 03/17/17 0646: Anion Gap 7, Estimated GFR > 60, BUN/Creatinine Ratio 32.5 H, CBC w Diff Pending, WBC Pending, RBC Pending, Hgb Pending, Hct Pending, MCV Pending, MCH Pending, RDW Pending, Plt Count Pending, MPV Pending, Gran % Pending, Lymphocytes % Pending, Monocytes % Pending, Eosinophils % Pending, Basophils % Pending, Absolute Granulocytes Pending, Absolute Lymphocytes Pending, Absolute Monocytes Pending, Absolute Eosinophils Pending, Absolute Basophils Pending, PUBS MCHC Pending Assessment/Plan Assessment: This is a 51-year-old lady with a past medical history significant for asthma, COPD not on home oxygen, renal cell carcinoma with right nephrectomy, presented with clinical symptoms of illness of breath, low-grade fever, sore throat, in the setting a recent acute bronchitis refractory to outpatient therapy. Impression and plan #Acute hypoxemic respiratory failure Currently requires 2 L to keep sats above 90%, not on home oxygen. Likely etiology of patient respiratory failure is the recent upper respiratory infection that is also exacerbating obstructive respiratory disease. Continue with O2 supplementation, and taper off appropriately. #Acute exacerbation of COPD/Asthma This is in the setting of the recent upper respiratory infection .l Continue current Solu-Medrol dose of 40 mg every 12, may change to PO if continues to improve. Until azithromycin for inflammatory purposes, day 3 -- changed form IV to PO . We'll continue [facility] nebs. #Leukocytosis. In the setting of steroid use most likely due margination rather than infectious etiology. #Tobacco abuse Providing smoking cessation counseling Nicotine patch #History of renal cell carcinoma Stable. Continue to trend kidney functions and CBC. Incentive spirometer ordered. Diet Changed to regular based on patient preference. Problem List: 1. ASTHMA EXACERBATION 2. RENAL CELL CA 3. Status asthmaticus 4. Asthma 5. COPD (chronic obstructive pulmonary disease) 6. Bronchitis Pain Ratin Pain Location: No Pain Endorsed Pain Goal: Remain pain free Pain Plan: Oxycodone Tomorrow's Labs & Rationales: No Labs ARTURDENEEN Minaya 03/17/17 0925: Attending MD Review Statement Attending Statement Attending MD Statement: examined this patient, discuss w/resident/PA/SAND MILL OPERATOR CORE SAND, agreed w/resident/PA/SAND MILL OPERATOR CORE SAND, discussed with family, reviewed EMR data (avail), discussed with nursing, discussed with case mgmt, reviewed images, amended to note Attending Assessment/Plan: ASSESSMENT 1. COPD exacerbation 2/2 bronchitis 2. Acute hypoxemic respiratory failure 3. GERD 4. Status post right nephrectomy due to renal cell carcinoma 5. Tobacco use PLAN Admit to inpatient medical services taper steroids, PO abx azithromycin, bronchodilators, (uses symbicort at home), o2 supplementation, pulm consulted resume home meds gi/dvt prophyalxis full code tobacco cessation counselling
[2017-03-17 08:28] LABS: ABSOLUTE BASOPHIL COUNT 0 /CUMM (0.0-0.2); ABSOLUTE EOSINOPHIL COUNT 0 /CUMM (0.0-0.7); ABSOLUTE GRANULOCYTE CT 13.2 /CUMM (1.4-6.5); ABSOLUTE LYMPH COUNT 0.9 /CUMM (1.2-3.4); ABSOLUTE MONOCYTE COUNT 0.5 /CUMM (0.10-0.60); BASOPHIL % 0 % (0.0-2.0); EOSINOPHIL % 0 % (0-5); HEMATOCRIT 38.1 % (37-47); MEAN CORPUSCULAR HGB 28.5 PG (27.0-31.0); MEAN CORPUSCULAR VOLUME 86.1 FL (81.0-99.0); MEAN PLATELET VOLUME 6.8 FL (7.4-10.4); PLATELET COUNT 198 /CUMM (130-400); RED BLOOD CELL CT 4.43 /CUMM (4.20-5.40); WHITE BLOOD CELL COUNT 14.5 /CUMM (4.8-10.8)
[2017-03-17 09:59] LABS: GRANULOCYTE % 90.7 % (42.2-75.2)
--- NOTE | 2017-03-17 11:48 | PN- Pulmonary ---
Subjective HPI/Critical Care Issues: The patient is awake and alert. She reports having ongoing wheezing and severe cough. She reports however feeling improved since admission. There were no overnight events reported. Objective Current Medications: Current Medications Sig/Vahe Start time Last Medication Dose Route Stop Time Status Admin Acetaminophen 650 MG Q6 PRN 03/15 1915 AC PO Albuterol Sulfate 3 ML EVERY 4 HRS/AWAKE 03/15 2000 AC 03/17 INH 0757 Albuterol Sulfate 2 PUF Q4-6 PRN PRN 03/15 1745 AC 03/16 INH 2348 Azithromycin 250 MG DAILY 03/18 1000 AC PO Azithromycin 500 MG DAILY 03/16 1000 DC 03/17 Sodium Chloride 250 ML IV 1105 Budesonide/ 2 PUF BID 03/15 2200 AC 03/17 Formoterol Fumarate INH 0928 Guaifenesin/Codeine 10 ML Q6P PRN 03/15 183 AC 03/17 Phosphate PO 1112 Heparin Sodium 5,000 UNIT Q8 03/150 AC (Porcine) SC Ipratropium [place] 2.5 ML EVERY 4 HRS/AWAKE 03/15 2000 AC 03/17 INH 0757 Loratadine 10 MG DAILY 03/16 1000 AC 03/17 PO 0928 Methylprednisolone 40 MG Q12 03/17 2200 AC IV Methylprednisolone 40 MG Q8 03/15 2200 DC 03/17 IV 0533 Morphine Sulfate 0.5 MG Q4-6 PRN PRN 03/15 1915 AC IV Nicotine 21 MG DAILY 03/15 181 AC 03/17 TOP 1103 Omeprazole 40 MG DAILY AC 03/15 181 AC 03/17 PO 0533 Oxycodone HCl 5 MG Q6 PRN 03/15 1915 AC 03/17 PO 0934 Vital Signs & I&O Last 24 Hrs of Vitals and I&O: Vital Signs Date Time Temp Pulse Resp B/P B/P Pulse O2 O2 Flow FiO2 Mean Ox Delivery Rate 03/17 0800 95 Nasal 3.0L Cannula 03/17 06 98.1 82 22 130/80 95 Nasal 3.0L Cannula 03/17 0000 Nasal 2.0L Cannula 03/16 2241 98.6 94 20 125/82 94 Room Air 03/16 1629 93 Nasal 3.0L Cannula 03/16 1600 Nasal 3.0L Cannula 03/16 1402 98.3 89 20 110/60 95 Nasal 3.0L Cannula Intake & Output 03/17 1600 03/17 0800 03/17 0000 Intake Total 400 400 Output Total Balance 400 400 Intake, Oral 400 400 Physical Exam General Appearance: well developed/nourished, awake, anxious, mild distress Head: atraumatic Ears, Nose, Throat: Postnasal drip Neck: normal inspection, supple Respiratory: decreased breath sounds, wheezing Cardiovascular: regular rate/rhythm Gastrointestinal: normal bowel sounds, soft, non-tender Back: normal inspection Extremities: no edema Results Last 24 Hrs of Lab Results: Laboratory Tests 03/17/17 0646: Anion Gap 7, Estimated GFR > 60, BUN/Creatinine Ratio 32.5 H, CBC w Diff NO MAN DIFF REQ, RBC 4.43, MCV 86.1, MCH 28.5, RDW 14.0, MPV 6.8 L, Gran % 90.7 H, Lymphocytes % 6.1 L, Monocytes % 3.2, Eosinophils % 0, Basophils % 0 L, Absolute Granulocytes 13.2 H, Absolute Lymphocytes 0.9 L, Absolute Monocytes 0.5, Absolute Eosinophils 0, Absolute Basophils 0, PUBS MCHC 33.0 Impression/Plan Impression/Plan Impression/Plan: 1. Acute hypoxemic respiratory failure secondary to bronchospasm. 2. Acute bronchitis. 3. History of renal cell carcinoma status post right nephrectomy. 4. Tobacco use disorder. Recommendations: * Continue nebs/TRC. * Complete 5 days of azithromycin. * Continue inhalers including Symbicort and nebulizer treatments. * Spiriva 1 inhalation every day. * Taper supplemental oxygen down for saturations greater than 92%. * Continue Robitussin with codeine. * Continue IV Solu-Medrol. * DVT prophylaxis at all times. * Continue all supportive care.
[2017-03-17 14:52] VITALS: BP 120/68
[2017-03-18 07:00] VITALS: BP 130/80
--- NOTE | 2017-03-18 07:14 | PN- Housestaff ---
See Addendum Subjective Follow-up For: COPD exacerbation Tobacco use Acute hypoxemic respiratory failure GERD S/P right nephrectomy Subjective: Patient seen and examined at bedside this AM. She is laying in bed with a warm sock across her lower abdomen due to strain from coughing. She reports she feels similar to yesterday without significant interval improvement. Patient is aware she needs to discontinue smoking, has attempted several times and has been unable to do so. Patient reports lethargy and malaise. She denies feer, chills, chest carisa, dysuria or weakness. She admits to cough, shortness of breath on exertion. Patient continues to require 3 L NC (on no home O2). Review of Systems Constitutional: Reports: malaise. Denies: chills, fever. EENTM: Denies: blurred vision, visual changes, hearing changes. Cardiovascular: Denies: chest pain, palpitations. Respiratory: Reports: cough, short of breath. Denies: hemoptysis. Gastrointestinal: Reports: abdominal pain (Muscular, from coughing). Denies: nausea, changes in stool, vomiting. Genitourinary: Denies: dysuria, hematuria. Musculoskeletal: Reports: muscle pain (Lower abdomen). Denies: neck pain. Skin: Denies: erythema, jaundice. Neurological/Psychological: Denies: confusion, headache, numbness. Hematologic/Endocrine: Denies: bleeding. Objective Last 24 Hrs of Vital Signs/I&O Vital Signs Date Time Temp Pulse Resp B/P B/P Pulse O2 O2 Flow FiO2 Mean Ox Delivery Rate 03/18 0831 96 Nasal 3.0L Cannula 03/18 0800 Nasal 3.0L Cannula 03/18 0700 98.2 84 20 130/80 96 Nasal 3.0L Cannula 03/18 0000 Nasal 3.0L Cannula 03/17 1648 95 Nasal 3.0L Cannula 03/17 1600 94 Nasal 3.0L Cannula 03/17 1452 98.3 98 20 120/68 94 Nasal 3.0L Cannula Intake & Output 03/18 1600 03/18 0800 03/18 0000 Intake Total 120 900 Output Total Balance 120 900 Intake, Oral 120 900 Physical Exam General Appearance: Alert, Oriented X3, Cooperative, No Acute Distress Skin: No Significant Lesion Skin Temp/Moisture Exam: Warm/Dry HEENT: Atraumatic, PERRLA, EOMI Neck: Supple, +2 Carotid Pulse wo Bruit Lymphatic: Cervical nl Cardiovascular: Regular Rate, Normal S1, Normal S2 Current Medications: Current Medications Sig/Vahe Start time Last Medication Dose Route Stop Time Status Admin Acetaminophen 650 MG Q6 PRN 03/15 1915 AC PO Albuterol Sulfate 3 ML EVERY 4 HRS/AWAKE 03/15 2000 AC 03/18 INH 0827 Albuterol Sulfate 2 PUF Q4-6 PRN PRN 03/15 1745 AC 03/17 INH 2214 Azithromycin 250 MG DAILY 03/18 1000 AC PO Azithromycin 500 MG DAILY 03/16 1000 DC 03/17 Sodium Chloride 250 ML IV 1105 Budesonide/ 2 PUF BID 03/15 220 AC 03/17 Formoterol Fumarate INH 211 Guaifenesin/Codeine 10 ML Q6P PRN 03/15 183 AC 03/18 Phosphate PO 0521 Heparin Sodium 5,000 UNIT Q8 03/15 2200 AC (Porcine) SC Ipratropium [place] 2.5 ML EVERY 4 HRS/AWAKE 03/15 2000 AC 03/18 INH 0828 Loratadine 10 MG DAILY 03/16 1000 AC 03/17 PO 0928 Methylprednisolone 40 MG Q12 03/17 2200 AC 03/17 IV 2117 Methylprednisolone 40 MG Q8 03/15 2200 DC 03/17 IV 0533 Morphine Sulfate 0.5 MG Q4-6 PRN PRN 03/15 1915 AC 03/17 IV 2326 Nicotine 21 MG DAILY 03/15 1819 AC 03/17 TOP 1103 Omeprazole 40 MG DAILY AC 03/15 181 AC 03/18 PO 0521 Oxycodone HCl 5 MG Q6 PRN 03/15 1915 AC 03/18 PO 0525 Tiotropium [place] 1 PUF DAILY 03/17 1515 AC 03/17 INH 1716 Orders Radiology Findings: CXR: IMPRESSION: Bronchial wall thickening suggests underlying bronchitis, no focal consolidation. Assessment/Plan Assessment: Ms. Rahman is a pleasant [id number] with a past medical history significant for asthma, COPD not on home oxygen and renal cell carcinoma s/p right nephrectomy who presented with clinical symptoms of shortess of breath, low-grade fever and sore throat in the setting a recent acute bronchitis refractory to outpatient therapy. Patient is currently admitted to the general medicine floor and the following is the management: #Acute hypoxemic respiratory failure secondary to bronchospasm * Currently requires 3 L to keep O2 saturation above 90% (not on home oxygen), slightly increased from 2 L * Continue with O2 supplementation, and taper off appropriately. * Continue to follow pulmonary recommendations from Dr. Yaya MD * Continue TRC nebs and supportive care, chest PT * DDimer added in AM and <200, low risk of PE ([place] score also shows low risk for DVT) #Acute bronchitis in the setting of COPD * Continue current Solu-Medrol dose of 40 mg every 12 * Continue azithromycin, switch to PO today to complete total of 5 days. * Continue TRC nebs, all supportive care, chest PT * Spiriva 1 puff daily, symbicort 2 puff BID * Continue robitussin PRN cough * Continue incentive spirometer #Leukocytosis. * In the setting of steroid use most likely due margination rather than infectious etiology. * Patient has remained afebrile, no further need to trend CBC #Tobacco abuse * Continue providing smoking cessation counseling * Nicotine patch daily #History of renal cell carcinoma * Stable. * Follow up with PCP wtihin 1 week of discharge and surgeon PRN after discharge FULL CODE DVTP: Heparin SC Diet: Regular (patient preference) Mild to severe pain pathway Problem List: 1. Bronchospasm 2. Acute hypoxemic respiratory failure 3. Tobacco use disorder 4. Bronchitis Pain Ratin Pain Location: Lower abdominal muscle strain Pain Goal: Pain 4 or less Pain Plan: Local heat therapy IV morphine PRN severe pain Roxicodone PRN moderate pain Tylenol PRN mild pain Tomorrow's Labs & Rationales: None.
--- NOTE | 2017-03-18 10:55 | PN- Pulmonary ---
Subjective HPI/Critical Care Issues: The patient is awake and alert. She reports her wheezing has improved, however she still has very severe coughing spasms with associated pleuritic pain. She also feels very fatigued. She is less short of breath. Overall, she feels her respiratory status is moving in the right direction however she is not close to her baseline as of yet. Objective Current Medications: Current Medications Sig/Vahe Start time Last Medication Dose Route Stop Time Status Admin Acetaminophen 650 MG Q6 PRN 03/15 1915 AC PO Albuterol Sulfate 3 ML EVERY 4 HRS/AWAKE 03/15 2000 AC 03/18 INH 0827 Albuterol Sulfate 2 PUF Q4-6 PRN PRN 03/15 1745 AC 03/17 INH 2214 Azithromycin 250 MG DAILY 03/18 1000 AC 03/18 PO 1025 Azithromycin 500 MG DAILY 03/16 1000 DC 03/17 Sodium Chloride 250 ML IV 1105 Budesonide/ 2 PUF BID 03/15 2200 AC 03/18 Formoterol Fumarate INH 1025 Guaifenesin 600 MG Q12 03/18 1000 AC 03/18 PO 1025 Guaifenesin/Codeine 10 ML Q6P PRN 03/15 1830 AC 03/18 Phosphate PO 0521 Heparin Sodium 5,000 UNIT Q8 03/15 2200 AC (Porcine) SC Ipratropium [place] 2.5 ML EVERY 4 HRS/AWAKE 03/15 2000 AC 03/18 INH 0828 Loratadine 10 MG DAILY 03/16 1000 AC 03/18 PO 1025 Methylprednisolone 40 MG Q12 03/17 2200 AC 03/18 IV 1025 Morphine Sulfate 0.5 MG Q4-6 PRN PRN 03/15 191 AC 03/17 IV 2326 Nicotine 21 MG DAILY 03/15 181 AC 03/18 TOP 1025 Omeprazole 40 MG DAILY AC 03/15 181 AC 03/18 PO 0521 Oxycodone HCl 5 MG Q6 PRN 03/15 1915 AC 03/18 PO 0525 Tiotropium [place] 1 PUF DAILY 03/17 1515 AC 03/18 INH 1025 Vital Signs & I&O Last 24 Hrs of Vitals and I&O: Vital Signs Date Time Temp Pulse Resp B/P B/P Pulse O2 O2 Flow FiO2 Mean Ox Delivery Rate 03/18 0831 96 Nasal 3.0L Cannula 03/18 0800 Nasal 3.0L Cannula 03/18 0700 98.2 84 20 130/80 96 Nasal 3.0L Cannula 03/18 0000 Nasal 3.0L Cannula 03/17 1648 95 Nasal 3.0L Cannula 03/17 1600 94 Nasal 3.0L Cannula 03/17 1452 98.3 98 20 120/68 94 Nasal 3.0L Cannula Intake & Output 03/18 1600 03/18 0800 03/18 0000 Intake Total 120 900 Output Total Balance 120 900 Intake, Oral 120 900 Physical Exam General Appearance: well developed/nourished, awake, anxious, no distress Head: atraumatic Neck: normal inspection, supple Respiratory: decreased breath sounds, wheezing and ronchi Cardiovascular: regular rate/rhythm Gastrointestinal: normal bowel sounds, soft, non-tender Back: normal inspection Extremities: no edema Results Last 24 Hrs of Lab Results: Laboratory Tests 03/18/17 1034: D-Dimer High Sensitivty Pending Impression/Plan Impression/Plan Impression/Plan: 1. Acute hypoxemic respiratory failure secondary to bronchospasm. 2. Acute bronchitis. 3. History of renal cell carcinoma status post right nephrectomy. 4. Tobacco use disorder. Recommendations: * Continue nebs/TRC. * Complete 5 days of azithromycin. * Continue inhalers including Symbicort and nebulizer treatments. * Spiriva 1 inhalation every day. * Taper supplemental oxygen down for saturations greater than 92%. * Continue Robitussin with codeine. * Continue IV Solu-Medrol. * DVT prophylaxis at all times. * Increase activity, out of bed to chair. * Continue all supportive care.
[2017-03-18 14:07] VITALS: BP 132/71
[2017-03-18 22:10] VITALS: BP 128/68
[2017-03-19 06:37] VITALS: BP 110/68
--- NOTE | 2017-03-19 07:23 | PN- Housestaff ---
MYRIAM MCKNIGHT,ESTHER 03/19/17 0722: Subjective Follow-up For: COPD exacerbation Tobacco use Acute hypoxemic respiratory failure S/P right nephrectomy Subjective: Patient seen and examined today. She still reports significant cough with yellowish phelgm production, unable to speak in full sentences. Did have good night sleep but notable for acute worsening of cough in the am. She had a rice sock on her left lower quadrant due to pain from excessive cough. Her last BM was yesterday without any nausea/vomiting. Review of Systems Constitutional: Reports: see HPI. Objective Last 24 Hrs of Vital Signs/I&O Vital Signs Date Time Temp Pulse Resp B/P B/P Pulse O2 O2 Flow FiO2 Mean Ox Delivery Rate 03/19 0637 98.6 94 20 110/68 94 Nasal 3.0L Cannula 03/19 0000 Nasal 3.0L Cannula 03/18 2210 98.8 97 20 128/68 94 Nasal 3.0L Cannula 03/18 1610 96 Nasal 3.0L Cannula 03/18 1407 98.3 96 20 132/71 93 Nasal 3.0L Cannula 03/18 0831 96 Nasal 3.0L Cannula 03/18 0800 Nasal 3.0L Cannula Intake & Output 03/19 0800 03/19 0000 03/18 1600 Intake Total 240 480 900 Output Total Balance 240 480 900 Intake, Oral 240 480 900 Physical Exam General Appearance: Alert, Oriented X3, Cooperative, Mild Distress Skin: No Rashes, No Breakdown HEENT: Atraumatic, PERRLA, EOMI Neck: Supple Cardiovascular: Normal S1, Normal S2 Lungs: poor air entry at bases with moderate wheezing in the upper lobes. Abdomen: Normal Bowel Sounds, Soft, No Tenderness Neurological: Strength at 5/5 X4 Ext, Normal Tone, Sensation Intact, Cranial Nerves 3-12 NL Extremities: No Clubbing, No Cyanosis, No Edema Current Medications: Current Medications Sig/Vahe Start time Last Medication Dose Route Stop Time Status Admin Acetaminophen 650 MG Q6 PRN 03/15 191 AC PO Albuterol Sulfate 3 ML EVERY 4 HRS/AWAKE 03/15 2000 AC 03/18 INH 2010 Albuterol Sulfate 2 PUF Q4-6 PRN PRN 03/15 1745 AC 03/17 INH 2213 Azithromycin 250 MG DAILY 03/18 1000 AC 03/18 PO 1025 Budesonide/ 2 PUF BID 03/15 2200 AC 03/18 Formoterol Fumarate INH 214 Guaifenesin 600 MG Q12 03/18 1000 AC 03/18 PO 2146 Guaifenesin/Codeine 10 ML Q6P PRN 03/15 1830 AC 03/19 Phosphate PO 0029 Heparin Sodium 5,000 UNIT Q8 03/15 2200 AC (Porcine) SC Ipratropium [place] 2.5 ML EVERY 4 HRS/AWAKE 03/15 2000 AC 03/18 INH 2011 Loratadine 10 MG DAILY 03/16 1000 AC 03/18 PO 1025 Methylprednisolone 40 MG Q12 03/17 2200 AC 03/18 IV 2146 Morphine Sulfate 0.5 MG Q4-6 PRN PRN 03/15 191 AC 03/17 IV 2326 Nicotine 21 MG DAILY 03/15 1819 AC 03/18 TOP 1025 Omeprazole 40 MG DAILY AC 03/15 1815 AC 03/19 PO 0542 Oxycodone HCl 5 MG Q6 PRN 03/15 1915 AC 03/18 PO 2146 Patient Medication 1 ED .STK-MED ONE 03/18 1354 PA Teaching ED 03/18 1355 Tiotropium [place] 1 PUF DAILY 03/17 1515 AC 03/18 INH 1025 Last 24 Hrs of Lab/Francesco Results Last 24 Hrs of Labs/Mics: Laboratory Tests 03/18/17 1034: D-Dimer High Sensitivty < 200 Microbiology 03/18 1700 LOWER RESP: Respiratory Culture - RES GRAM POSITIVE COCCI 03/18 1700 LOWER RESP: Gram Stain - RES Assessment/Plan Assessment: Ms. Rahman is a 51-year-old female with a PMH significant for asthma, COPD not on home oxygen and renal cell carcinoma s/p right nephrectomy who presented with clinical symptoms of shortess of breath, low-grade fever and sore throat in the setting a recent acute bronchitis refractory to outpatient therapy. Patient is currently admitted to the general medicine floor and the following is the management: Acute hypoxemic respiratory failure secondary to bronchospasm * Currently requires 3 L to keep O2 saturation above 90% (not on home oxygen), slightly increased from 2 L * Continue with O2 supplementation, and taper off appropriately. * Continue to follow pulmonary recommendations from Dr. Yaya MD * Continue TRC nebs and supportive care, chest PT * DDimer added in AM and <200, low risk of PE ([place] score also shows low risk for DVT) * Respiratory cultures grew gram positive cocci in pairs, started on IV ceftriaxone. Acute bronchitis in the setting of COPD * Continue current Solu-Medrol dose of 40 mg every 12 * Continue azithromycin PO 3/5 today, continue robitussin PRN cough * Continue TRC nebs, all supportive care, chest PT * Spiriva 1 puff daily, symbicort 2 puff BID * sputum cultures grew gram positive cocci in pairs. * Continue incentive spirometer. Leukocytosis. * In the setting of steroid use most likely due margination rather than infectious etiology. * Patient has remained afebrile - CXR negative for pneumonia. Tobacco abuse * Continue providing smoking cessation counseling * Nicotine patch daily #History of renal cell carcinoma * Stable. * Follow up with PCP wtihin 1 week of discharge and surgeon PRN after discharge FULL CODE DVTP: Heparin SC Diet: Regular (patient preference) Mild to severe pain pathway Problem List: 1. Asthma 2. RENAL CELL CA 3. Acute hypoxemic respiratory failure 4. Bronchospasm 5. Tobacco use disorder Pain Ratin Pain Location: chest pain Pain Goal: Pain 4 or less Pain Plan: tylenol Tomorrow's Labs & Rationales: cbc to monitor white count BRENDA AGUILERA MD 03/19/17 1335: Attending MD Review Statement Attending Statement Attending MD Statement: examined this patient, discuss w/resident/PA/CONSTRUCTION DRILLER, agreed w/resident/PA/CONSTRUCTION DRILLER, reviewed EMR data (avail) Attending Assessment/Plan: 51F PMH COPD admitted with acute exacerbation of COPD with acute bronchitis and acute hypoxemic respiratory failure. Patient is still dyspneic today. She is able to walk but becomes mildly short of breath when she does so. Infrequently coughing up sputum, now yellow, was green on admission. Afebrile but oxygen requirements not improving. Mild wheezing on the left on exam. Sputum culture growing GPC in chains. 1. Acute exacerbation of COPD 2. Acute bronchitis 3. Acute hypoxemic respiratory failure 4. Dyspnea on exertion Plan - Continue on general medicine - Continue current steroid dose - Start Ceftriaxone - Continue Azithromycin - TRC/nebulizer treatments - Follw cultures - Follow pulmonary recommendations - Continue home medications - Encourage ambulation with oxygen - DVT PPx
--- NOTE | 2017-03-19 09:01 | PN- Pulmonary ---
Subjective HPI/Critical Care Issues: The patient is awake and alert. She reports having an episode of increased shortness of breath and coughing this morning. She feels she needs to take her Symbicort earlier. The patient is also growing gram-positive cocci in her sputum, and has been started on ceftriaxone. Objective Current Medications: Current Medications Sig/Vahe Start time Last Medication Dose Route Stop Time Status Admin Acetaminophen 650 MG Q6 PRN 03/15 1915 AC PO Albuterol Sulfate 3 ML EVERY 4 HRS/AWAKE 03/15 2000 AC 03/19 INH 0824 Albuterol Sulfate 2 PUF Q4-6 PRN PRN 03/15 1745 AC 03/17 INH 2214 Azithromycin 250 MG DAILY 03/18 1000 AC 03/18 PO 1025 Budesonide/ 2 PUF 0800,03/19 AC Formoterol Fumarate INH Budesonide/ 2 PUF BID 03/15 2200 AC 03/18 Formoterol Fumarate INH 03/19 1000 2146 Guaifenesin 600 MG Q12 03/18 1000 AC 03/18 PO 2146 Guaifenesin/Codeine 10 ML Q6P PRN 03/15 1830 AC 03/19 Phosphate PO 0029 Heparin Sodium 5,000 UNIT Q8 03/15 2200 AC (Porcine) SC Ipratropium [place] 2.5 ML EVERY 4 HRS/AWAKE 03/15 2000 AC 03/19 INH 0824 Loratadine 10 MG DAILY 03/16 1000 AC 03/18 PO 1025 Methylprednisolone 40 MG Q12 03/17 2200 AC 03/18 IV 2146 Morphine Sulfate 0.5 MG Q4-6 PRN PRN 03/15 191 AC 03/17 IV 2326 Nicotine 21 MG DAILY 03/15 181 AC 03/18 TOP 1025 Omeprazole 40 MG DAILY AC 03/15 181 AC 03/19 PO 0542 Oxycodone HCl 5 MG Q6 PRN 03/15 191 AC 03/18 PO 2146 Patient Medication 1 ED .STK-MED ONE 03/18 1354 DC Teaching ED 03/18 1355 Tiotropium [place] 1 PUF DAILY 03/17 1515 AC 03/18 INH 1025 Vital Signs & I&O Last 24 Hrs of Vitals and I&O: Vital Signs Date Time Temp Pulse Resp B/P B/P Pulse O2 O2 Flow FiO2 Mean Ox Delivery Rate 03/19 0637 98.6 94 20 110/68 94 Nasal 3.0L Cannula 03/19 0000 Nasal 3.0L Cannula 03/18 2210 98.8 97 20 128/68 94 Nasal 3.0L Cannula 03/18 1610 96 Nasal 3.0L Cannula 03/18 1407 98.3 96 20 132/71 93 Nasal 3.0L Cannula Intake & Output 03/19 1600 03/19 0800 03/19 0000 Intake Total 240 480 Output Total Balance 240 480 Intake, Oral 240 480 Physical Exam General Appearance: well developed/nourished, awake, anxious, no distress Head: atraumatic Neck: normal inspection, supple Respiratory: decreased breath sounds, wheezing and ronchi Cardiovascular: regular rate/rhythm Gastrointestinal: normal bowel sounds, soft, non-tender Back: normal inspection Extremities: no edema Results Last 24 Hrs of Lab Results: Laboratory Tests 03/18/17 1034: D-Dimer High Sensitivty < 200 Impression/Plan Impression/Plan Impression/Plan: 1. Acute hypoxemic respiratory failure secondary to bronchospasm/acute exacerbation of COPD. 2. Acute bronchitis. 3. History of renal cell carcinoma status post right nephrectomy. 4. Tobacco use disorder. 5. Leukocytosis, likely secondary to steroids. 6. GPC's in sputum, rule out pneumonia. Recommendations: * Change Symbicort - to be given at 8 am and 8 pm. * Continue nebs/TRC. * Complete 5 days of azithromycin. * Spiriva 1 inhalation every day. * Taper supplemental oxygen down for saturations greater than 92%. * Check a chest x-ray today to rule out pneumonia. * Agree with IV ceftriaxone. * Continue Robitussin with codeine. * Continue IV Solu-Medrol. * DVT prophylaxis at all times. * Increase activity, out of bed to chair. * Continue all supportive care.
--- NOTE | 2017-03-19 10:51 | RADIOLOGY REPORT ---
EXAMINATION: XR CHEST CLINICAL INFORMATION: Shortness of breath. Not improving on steroids. Evaluate for pneumonia. COMPARISON: Previous chest x-rays most recent 03/15/2017 TECHNIQUE: 2 views of the chest were obtained. FINDINGS: The cardiac and mediastinal contours are normal. The lungs are clear. There is no evidence for pneumonia. There is no pleural effusion or pneumothorax. Bony structures are unremarkable. IMPRESSION: Unremarkable examination.
[2017-03-19 14:31] VITALS: BP 110/64
[2017-03-19 22:30] VITALS: BP 118/66
[2017-03-20 06:59] VITALS: BP 120/62
--- NOTE | 2017-03-20 07:17 | PN- Housestaff ---
MYRIAM MCKNIGHT,ESTHER 03/20/17 0717: Subjective Follow-up For: COPD exacerbation Strep penumo in sputum cultures Subjective: I saw and examined the patient today morning She is doing much better today, undergoing breathing therapy. Her saturations are much better on room air. She even started ambulating on hallways. Review of Systems Constitutional: Reports: see HPI. Objective Last 24 Hrs of Vital Signs/I&O Vital Signs Date Time Temp Pulse Resp B/P B/P Pulse O2 O2 Flow FiO2 Mean Ox Delivery Rate 03/20 0659 97.9 74 18 120/62 95 Nasal 1.5L Cannula 03/20 0000 93 Nasal 1.5L Cannula 03/19 2230 98.0 88 18 118/66 94 Nasal 1.5L Cannula 03/19 1600 95 Nasal 2.5L Cannula 03/19 1431 98.2 97 20 110/64 95 Nasal 2.5L Cannula 03/19 1034 95 Nasal 2.5L Cannula 03/19 0800 96 Nasal 2.5L Cannula Intake & Output 03/20 0800 03/20 0000 03/19 1600 Intake Total 400 480 795 Output Total Balance 400 480 795 Intake, Oral 400 480 720 Intake, 75 TPN/PPN Number 1 Bowel Movements Physical Exam General Appearance: Alert, Oriented X3, Cooperative, No Acute Distress Skin: No Rashes, No Breakdown HEENT: Atraumatic, PERRLA Neck: Supple Cardiovascular: Normal S1, Normal S2 Lungs: Normal Air Movement, mild rhonchi at bases Abdomen: Normal Bowel Sounds, Soft, No Tenderness Neurological: Normal Gait, Normal Speech, Strength at 5/5 X4 Ext, Normal Tone, Sensation Intact Assessment/Plan Assessment: Ms. Rahman is a 51-year-old female with a PMH significant for asthma, COPD not on home oxygen and renal cell carcinoma s/p right nephrectomy who presented with clinical symptoms of shortess of breath, low-grade fever and sore throat in the setting a recent acute bronchitis refractory to outpatient therapy. Patient is currently admitted to the general medicine floor and the following is the management: Acute hypoxemic respiratory failure secondary to strep pneumo infection * Currently on room air * Continue to follow pulmonary recommendations from Dr. Yaya MD * Continue TRC nebs and supportive care, chest PT * Respiratory cultures grew gram positive cocci in pairs * we will convert to augmentin for a total of 10days -- as patient is allergic to penicillin and developed hives in [facility], we will monitor tomorrow and then discharge. Tobacco abuse * Continue providing smoking cessation counseling * Nicotine patch daily History of renal cell carcinoma * Stable. * Follow up with PCP wtihin 1 week of discharge and surgeon PRN after discharge FULL CODE DVTP: Heparin SC Diet: Regular (patient preference) Mild to severe pain pathway Problem List: 1. COPD (chronic obstructive pulmonary disease) 2. Asthma 3. RENAL CELL CA 4. Tobacco use disorder Pain Ratin Pain Location: n/a Pain Goal: Pain 4 or less Pain Plan: tylenol prn Tomorrow's Labs & Rationales: NONE BRENDA AGUILERA MD 03/20/17 1245: Attending MD Review Statement Attending Statement Attending MD Statement: examined this patient, discuss w/resident/PA/STAFFING SPECIALIST, agreed w/resident/PA/STAFFING SPECIALIST, reviewed EMR data (avail) Attending Assessment/Plan: 51F PMH COPD admitted with acute exacerbation of COPD with acute bronchitis and acute hypoxemic respiratory failure. Patient is MUCH improved today. She is now on room air and able to ambulate with improved dyspnea. She is able to speak in complete sentences. She remains afebrile. Sputum growing GPC. 1. Acute exacerbation of COPD 2. Acute bronchitis 3. Acute hypoxemic respiratory failure 4. Dyspnea on exertion Plan - Continue on general medicine - Taper steroids - Continue Ceftriaxone, will switch to Augmentin tomorrow to complete 7 day course - TRC/nebulizer treatments - Follw cultures - Follow pulmonary recommendations - Continue home medications - Encourage ambulation with oxygen - DVT PPx - Anticipated discharge tomorrow. Please send CMR to pharmacy for review. - Follw cultures - Follow pulmonary recommendations - Continue home medications - Encourage ambulation with oxygen - DVT PPx - Anticipated discharge tomorrow. Please send CMR to pharmacy for review.
[2017-03-20 08:04] LABS: ABSOLUTE BASOPHIL COUNT 0 /CUMM (0.0-0.2); ABSOLUTE EOSINOPHIL COUNT 0 /CUMM (0.0-0.7); ABSOLUTE LYMPH COUNT 0.8 /CUMM (1.2-3.4); ABSOLUTE MONOCYTE COUNT 0.4 /CUMM (0.10-0.60); BASOPHIL % 0.1 % (0.0-2.0); EOSINOPHIL % 0 % (0-5); MEAN CORPUSCULAR HGB 28.4 PG (27.0-31.0); MEAN CORPUSCULAR HGB CONC 33.2 G/DL (33.0-37.0); MEAN CORPUSCULAR VOLUME 85.5 FL (81.0-99.0); MEAN PLATELET VOLUME 6.7 FL (7.4-10.4); RBC DISTRIBUTION WIDTH 14.4 % (11.5-14.5); RED BLOOD CELL CT 4.56 /CUMM (4.20-5.40); WHITE BLOOD CELL COUNT 15.1 /CUMM (4.8-10.8)
[2017-03-20 08:39] LABS: PLATELET COUNT 191 /CUMM (130-400)
[2017-03-20 08:44] LABS: GRANULOCYTE % 92.5 % (42.2-75.2)
--- NOTE | 2017-03-20 09:10 | PN- Pulmonary ---
Subjective HPI/Critical Care Issues: The patient is awake and alert. She reports feeling markedly improved today. She is now off supplemental oxygen. She is less short of breath, however she continues to have wheezing and coughing. She feels she can take a deeper breath in. She remains afebrile, on steroids. She offers no other new complaints today. Objective Current Medications: Current Medications Sig/Vahe Start time Last Medication Dose Route Stop Time Status Admin Acetaminophen 650 MG Q6 PRN 03/15 1915 AC PO Albuterol Sulfate 3 ML EVERY 4 HRS/AWAKE 03/15 2000 AC 03/20 INH 0816 Albuterol Sulfate 2 PUF Q4-6 PRN PRN 03/15 1745 AC 03/17 INH 2214 Azithromycin 250 MG DAILY 03/18 1000 AC 03/19 PO 0917 Budesonide/ 2 PUF 0800,03/19 AC 03/19 Formoterol Fumarate INH 212 Budesonide/ 2 PUF BID 03/15 2200 DC 03/19 Formoterol Fumarate INH 03/19 1000 0918 Ceftriaxone Sodium 1,000 MG DAILY 03/19 1000 AC 03/19 IV 1202 Guaifenesin 600 MG Q12 03/18 1000 AC 03/19 PO 2128 Guaifenesin/Codeine 10 ML Q6P PRN 03/15 1830 AC 03/20 Phosphate PO 0325 Guaifenesin/ 10 ML .STK-MED ONE 03/19 1435 DC Dextromethorphan PO 03/19 1436 Heparin Sodium 5,000 UNIT Q8 03/15 2200 AC (Porcine) SC Ipratropium [place] 2.5 ML EVERY 4 HRS/AWAKE 03/15 2000 AC 03/20 INH 0816 Loratadine 10 MG DAILY 03/16 1000 AC 03/19 PO 0919 Methylprednisolone 40 MG Q12 03/17 2200 AC 03/19 IV 2128 Morphine Sulfate 0.5 MG Q4-6 PRN PRN 03/15 1915 AC 03/17 IV 2326 Nicotine 21 MG DAILY 03/15 181 AC 03/19 TOP 0917 Omeprazole 40 MG DAILY AC 03/15 181 AC 03/20 PO 0534 Oxycodone HCl 5 MG Q6 PRN 03/15 191 AC 03/20 PO 0623 Tiotropium [place] 1 PUF DAILY 03/17 1515 AC 03/19 INH 0917 Vital Signs & I&O Last 24 Hrs of Vitals and I&O: Vital Signs Date Time Temp Pulse Resp B/P B/P Pulse O2 O2 Flow FiO2 Mean Ox Delivery Rate 03/20 0659 97.9 74 18 120/62 95 Nasal 1.5L Cannula 03/20 0000 93 Nasal 1.5L Cannula 03/19 2230 98.0 88 18 118/66 94 Nasal 1.5L Cannula 03/19 1600 95 Nasal 2.5L Cannula 03/19 1431 98.2 97 20 110/64 95 Nasal 2.5L Cannula 03/19 1034 95 Nasal 2.5L Cannula Intake & Output 03/20 1600 03/20 0800 03/20 0000 Intake Total 400 480 Output Total Balance 400 480 Intake, Oral 400 480 Physical Exam General Appearance: well developed/nourished, awake, anxious, no distress Head: atraumatic Neck: normal inspection, supple Respiratory: decreased breath sounds, wheezing and ronchi Cardiovascular: regular rate/rhythm Gastrointestinal: normal bowel sounds, soft, non-tender Back: normal inspection Extremities: no edema Results Last 24 Hrs of Lab Results: Laboratory Tests 03/20/17 0622: CBC w Diff MAN DIFF ORDERED, WBC Pending, RBC Pending, Hgb Pending, Hct Pending, MCV Pending, MCH Pending, RDW Pending, Plt Count Pending, MPV Pending, Gran % Pending, Lymphocytes % Pending, Monocytes % Pending, Eosinophils % Pending, Basophils % Pending, Absolute Granulocytes Pending, Segmented Neutrophils Pending, Absolute Lymphocytes Pending, Absolute Monocytes Pending, Absolute Eosinophils Pending, Absolute Basophils Pending, PUBS MCHC Pending Last 24 Hrs of Micro Results: Sputum positive for GPC's. Diagnostic Data CXR Findings: Unremarkable examination. Impression/Plan Impression/Plan Impression/Plan: 1. Acute hypoxemic respiratory failure secondary to bronchospasm/acute exacerbation of COPD. 2. Acute bronchitis. 3. History of renal cell carcinoma status post right nephrectomy. 4. Tobacco use disorder. 5. Leukocytosis, likely secondary to steroids. 6. GPC's in sputum, rule out pneumonia. Recommendations: * Symbicort - to be given at 8 am and 8 pm. * Continue nebs/TRC. * Complete 5 days of azithromycin. * Spiriva 1 inhalation every day. * Monitor oxygen saturations. * Check a chest x-ray today to rule out pneumonia. * Agree with IV ceftriaxone. * Continue Robitussin with codeine. * Continue IV Solu-Medrol at the current dose. * DVT prophylaxis at all times. * Increase activity, out of bed to chair. * Continue all supportive care.
[2017-03-20 14:34] VITALS: BP 124/76
--- NOTE | 2017-03-20 18:34 | Patient Discharge Instructions ---
Discharge Instructions General Discharge Information You were seen/treated for: COPD exacerbation Bronchitis Special Instructions: Please follow up with your PCP ( ) in a week Please follow up with in a week Please take your medications regularly Diet Continue normal diet: Yes Activity Full Activity/No Limits: Yes Acute Coronary Syndrome Inclusion Criteria At DC or during hospital stay patient has or had the following: ACS DIAGNOSIS No Discharge Core Measures Meds if any: Prescribed or Continued at Discharge Meds if any: NOT Prescribed or Continued at Discharge Congestive Heart Failure Inclusion Criteria At DC or during hospital stay patient has or had the following: CHF DIAGNOSIS No Discharge Core Measures Meds if any: Prescribed or Continued at Discharge Meds if any: NOT Prescribed or Continued at Discharge Cerebrovascular accident Inclusion Criteria At DC or during hospital stay patient has or had the following: CVA/TIA Diagnosis No Discharge Core Measures Meds if any: Prescribed or Continued at Discharge Meds if any: NOT Prescribed or Continued at Discharge Venous thromboembolism Inclusion Criteria VTE Diagnosis No VTE Type NONE VTE Confirmed by (Test) NONE Discharge Core Measures - Per Current guidelines, there needs to be overlap - treatment for the first 5 days of Warfarin therapy. - If discharged on Warfarin prior to 5 days of - overlap therapy, the patient will need to be - assessed for post discharge needs including - *Post discharge parental anticoagulation - *Warfarin and/or parental anticoagulation education - *Follow up date to check INR post discharge At least 5 days overlap therapy as Inpatient No Meds if any: Prescribed or Continued at Discharge Note: Overlap Therapy is Warfarin and Anticoagulant Meds if any: NOT Prescribed or Continued at Discharge
--- NOTE | 2017-03-20 21:08 | NUR ---
A+O X 3. ON ROOM AIR. DENIES SHORTNESS OF BREATH. PRODUCTIVE COUGH VITAL SIGNS STABLE. DENIES CHEST PAIN. + PULSES. DENIES NUMBNESS/TINGLING PAIN NOTED TO L SIDE OF ABD WHEN COUGHING. STEADY GAIT. SKIN C/D/I MEDICATION GIVEN FOR DISCOMFORT. PATIENT RESTING AT THIS TIME WILL CONTINUE TO MONITOR
[2017-03-20 21:48] VITALS: BP 124/72
[2017-03-21 06:10] VITALS: BP 118/80
--- NOTE | 2017-03-21 07:08 | PN- Housestaff ---
MYRIAM MCKNIGHT,ESTHER 03/21/17 0708: Subjective Follow-up For: Strep pneumo in sputum cultures COPD exacerbation Subjective: I saw and examined the patient today morning She is doing much better in terms of respiratory status, however she woke up at 3am with bilateral lower extremity pain. She did have some cough with mild phlegm production -- getting better. Review of Systems Constitutional: Reports: see HPI. Objective Last 24 Hrs of Vital Signs/I&O Vital Signs Date Time Temp Pulse Resp B/P B/P Pulse O2 O2 Flow FiO2 Mean Ox Delivery Rate 03/21 0610 98.0 81 20 118/80 94 Room Air 03/21 0000 93 Room Air 03/20 2148 98.2 88 22 124/72 93 Room Air 03/20 1620 95 Room Air Room Air 03/20 1600 Room Air 03/20 1434 99.3 87 20 124/76 92 03/20 0928 94 Room Air Room Air 03/20 0800 95 Room Air Intake & Output 03/21 0800 03/21 0000 03/20 1600 Intake Total 240 500 720 Output Total Balance 240 500 720 Intake, Oral 240 500 720 Number 1 Bowel Movements Patient 74.843 kg Weight Physical Exam General Appearance: Alert, Oriented X3, Cooperative, No Acute Distress Skin: No Rashes, No Breakdown HEENT: Atraumatic, PERRLA, EOMI Neck: Supple Cardiovascular: Normal S1, Normal S2 Lungs: Clear to Auscultation, Normal Air Movement Abdomen: Normal Bowel Sounds, Soft, No Tenderness Neurological: Normal Gait, Normal Speech, Strength at 5/5 X4 Ext, Normal Tone, Sensation Intact Extremities: No Clubbing, No Cyanosis, No Edema, mildly tender to palpation Vascular: Normal Pulses, Pulses Symmetrical Current Medications: Current Medications Sig/Vahe Start time Last Medication Dose Route Stop Time Status Admin Acetaminophen 650 MG Q6 PRN 03/15 1915 AC PO Albuterol Sulfate 3 ML EVERY 4 HRS/AWAKE 03/15 2000 AC 03/20 INH 2016 Albuterol Sulfate 2 PUF Q4-6 PRN PRN 03/15 1745 AC 03/17 INH 2214 Azithromycin 250 MG DAILY 03/18 1000 AC 03/20 PO 0950 Budesonide/ 2 PUF 0800,03/19 AC 03/20 Formoterol Fumarate INH 2037 Ceftriaxone Sodium 1,000 MG DAILY 03/19 1000 DC 03/20 IV 1015 Guaifenesin 600 MG Q12 03/18 1000 AC 03/20 PO 2159 Guaifenesin/Codeine 10 ML Q6P PRN 03/15 1830 AC 03/21 Phosphate PO 0313 Heparin Sodium 5,000 UNIT Q8 03/15 2200 AC (Porcine) SC Ipratropium [place] 2.5 ML EVERY 4 HRS/AWAKE 03/15 2000 DC 03/20 INH 1142 Loratadine 10 MG DAILY 03/16 1000 AC 03/20 PO 0949 Methylprednisolone 40 MG Q12 03/17 2200 DC 03/20 IV 0952 Morphine Sulfate 0.5 MG Q4-6 PRN PRN 03/15 191 AC 03/17 IV 2326 Nicotine 21 MG DAILY 03/15 181 03/20 TOP 0952 Omeprazole 40 MG DAILY AC 03/15 181 03/21 PO 0542 Ondansetron HCl 4 MG .STK-MED ONE 03/20 192 DC IM 03/20 192 Oxycodone HCl 5 MG Q6 PRN 03/15 191 03/21 PO 0314 Patient Medication 1 ED .STK-MED ONE 03/20 1329 DC Teaching ED 03/20 1330 Prednisone 10 MG 1000 04/02 1000 AC PO 04/04 1001 Prednisone 20 MG 1000 03/30 1000 AC PO 04/01 1001 Prednisone 30 MG 1000 03/27 1000 AC PO 03/29 1001 Prednisone 40 MG 1000 03/24 1000 AC PO 03/26 1001 Prednisone 50 MG DAILY 03/21 1000 DC PO 04/05 0959 Prednisone 50 MG 1000 03/21 1000 AC PO 03/23 1001 Tiotropium [place] 1 PUF DAILY 03/17 1515 03/20 INH 0950 Last 24 Hrs of Lab/Francesco Results Last 24 Hrs of Labs/Mics: Laboratory Tests 03/21/17 0850: Anion Gap 12, Estimated GFR > 60, BUN/Creatinine Ratio 33.3 H 03/21/17 0622: CBC w Diff NO MAN DIFF REQ, RBC 4.43, MCV 85.6, MCH 28.2, RDW 14.7 H, MPV 6.8 L, Gran % 83.8 H, Lymphocytes % 11.2 L, Monocytes % 4.8, Eosinophils % 0, Basophils % 0.2, Absolute Granulocytes 10.7 H, Absolute Lymphocytes 1.4, Absolute Monocytes 0.6, Absolute Eosinophils 0, Absolute Basophils 0, PUBS MCHC 33.0 Assessment/Plan Assessment: Ms. Rahman is a 51-year-old female with a PMH significant for asthma, COPD not on home oxygen and renal cell carcinoma s/p right nephrectomy who presented with clinical symptoms of shortess of breath, low-grade fever and sore throat in the setting a recent acute bronchitis refractory to outpatient therapy. Patient is currently admitted to the general medicine floor and the following is the management: Acute hypoxemic respiratory failure secondary to strep pneumo infection * Currently on room air * Continue to follow pulmonary recommendations from Dr. Yaya MD * Continue TRC nebs and supportive care, chest PT * Respiratory cultures grew step pneumo -- senstivities pending as they are growing with yeast. * Today she is given a single dose of augementin with benadryl and epi at bedside, didnt have any reaction to it -- history of rash to penicillin in child bob * Sent home with augmentin for a total of 10days, Robittusin AC for cough and a prednisone taper. Tobacco abuse * Continue providing smoking cessation counseling * Nicotine patch daily History of renal cell carcinoma * Stable. * Follow up with PCP wtihin 1 week of discharge and surgeon PRN after discharge FULL CODE DVTP: Heparin SC Diet: Regular (patient preference) Mild to severe pain pathway Problem List: 1. COPD (chronic obstructive pulmonary disease) 2. Tobacco use disorder 3. Acute hypoxemic respiratory failure 4. Bronchospasm Pain Ratin Pain Location: n/a Pain Goal: Pain 4 or less Pain Plan: tylenol prn Tomorrow's Labs & Rationales: none BRENDA AGUILERA MD 03/21/17 1116: Attending MD Review Statement Attending Statement Attending MD Statement: examined this patient, discuss w/resident/PA/FREIGHT AIR BRAKE FITTER, agreed w/resident/PA/FREIGHT AIR BRAKE FITTER, reviewed EMR data (avail) Attending Assessment/Plan: 51F PMH COPD admitted with acute exacerbation of COPD with acute bronchitis and acute hypoxemic respiratory failure. Patient is MUCH improved today. She is now on room air and able to ambulate with improved dyspnea. She is able to speak in complete sentences. She remains afebrile. Sputum growing GPC. She complained of shooting pain in both lower legs overnight that woke her up and have since resolved. 1. Acute exacerbation of COPD 2. Acute bronchitis 3. Acute hypoxemic respiratory failure 4. Dyspnea on exertion Plan - Stable for discharge pending culture results - Taper steroids - Can switch to Cephalexin to complete course as patient has penicillin allergy - Will call microbiology lab for identification of GPC in sputum prior to discharge - Follow pulmonary recommendations - Continue home medications
[2017-03-21 08:08] LABS: ABSOLUTE BASOPHIL COUNT 0 /CUMM (0.0-0.2); ABSOLUTE EOSINOPHIL COUNT 0 /CUMM (0.0-0.7); ABSOLUTE GRANULOCYTE CT 10.7 /CUMM (1.4-6.5); ABSOLUTE LYMPH COUNT 1.4 /CUMM (1.2-3.4); ABSOLUTE MONOCYTE COUNT 0.6 /CUMM (0.10-0.60); BASOPHIL % 0.2 % (0.0-2.0); EOSINOPHIL % 0 % (0-5); HEMATOCRIT 37.9 % (37-47); MEAN CORPUSCULAR HGB 28.2 PG (27.0-31.0); MEAN CORPUSCULAR VOLUME 85.6 FL (81.0-99.0); MEAN PLATELET VOLUME 6.8 FL (7.4-10.4); PLATELET COUNT 172 /CUMM (130-400); RBC DISTRIBUTION WIDTH 14.7 % (11.5-14.5); RED BLOOD CELL CT 4.43 /CUMM (4.20-5.40); WHITE BLOOD CELL COUNT 12.8 /CUMM (4.8-10.8)
--- NOTE | 2017-03-21 09:11 | PN- Pulmonary ---
Subjective HPI/Critical Care Issues: The patient is awake and alert. She reports feeling markedly improved. She is less short of breath and able to ambulate without significant dyspnea. Her wheezing has improved as well. Overall she offers no new respiratory complaints today. The patient does however note that she is having sharp stabbing pains in her lower extremities. This is a new symptom. There is no swelling or erythema on the lower external 80s. Objective Current Medications: Current Medications Sig/Vahe Start time Last Medication Dose Route Stop Time Status Admin Acetaminophen 650 MG Q6 PRN 03/15 191 AC PO Albuterol Sulfate 3 ML EVERY 4 HRS/AWAKE 03/15 2000 AC 03/21 INH 0806 Albuterol Sulfate 2 PUF Q4-6 PRN PRN 03/15 1745 AC 03/17 INH 2214 Amoxicillin/ 875 MG Q12 03/21 0815 AC Clavulanate Potassium PO Azithromycin 250 MG DAILY 03/18 1000 AC 03/20 PO 0950 Budesonide/ 2 PUF 0800,03/19 03/20 Formoterol Fumarate INH 2038 Ceftriaxone Sodium 1,000 MG DAILY 03/19 1000 DC 03/20 IV 1015 Diphenhydramine HCl 25 MG ONCE PRN 03/21 0845 UNVr PO Diphenhydramine HCl 25 MG ONCE ONE 03/21 0815 CAN PO 03/21 0816 Epinephrine 0.3 MG ONCE PRN 03/21 0845 UNVr IM Epinephrine 0.3 MG ONCE ONE 03/21 0815 CAN IM 03/21 0816 Guaifenesin 600 MG Q12 03/18 1000 AC 03/20 PO 2159 Guaifenesin/Codeine 10 ML Q6P PRN 03/15 1830 AC 03/21 Phosphate PO 0313 Heparin Sodium 5,000 UNIT Q8 03/15 2200 AC (Porcine) SC Ipratropium [place] 2.5 ML EVERY 4 HRS/AWAKE 03/15 2000 DC 03/20 INH 1142 Loratadine 10 MG DAILY 03/16 1000 AC 03/20 PO 0949 Methylprednisolone 40 MG Q12 03/17 2200 DC 03/20 IV 0952 Morphine Sulfate 0.5 MG Q4-6 PRN PRN 03/15 1915 AC 03/17 IV 2326 Nicotine 21 MG DAILY 03/15 181 AC 03/20 TOP 0952 Omeprazole 40 MG DAILY AC 03/15 1815 AC 03/21 PO 0542 Ondansetron HCl 4 MG .STK-MED ONE 03/20 1922 DC IM 03/20 1923 Oxycodone HCl 5 MG Q6 PRN 03/15 1915 AC 03/21 PO 0314 Oxycodone/ 1 TAB ONCE ONE 03/21 0845 UNVr Acetaminophen PO 03/21 0846 Patient Medication 1 ED .STK-MED ONE 03/20 1329 DC Teaching ED 03/20 1330 Prednisone 10 MG 1000 04/02 1000 AC PO 04/04 1001 Prednisone 20 MG 1000 03/30 1000 AC PO 04/01 1001 Prednisone 30 MG 1000 03/27 1000 AC PO 03/29 1001 Prednisone 40 MG 1000 03/24 1000 AC PO 03/26 1001 Prednisone 50 MG DAILY 03/21 1000 DC PO 04/05 0959 Prednisone 50 MG 1000 03/21 1000 AC PO 03/23 1001 Tiotropium [place] 1 PUF DAILY 03/17 1515 AC 03/20 INH 0950 Vital Signs & I&O Last 24 Hrs of Vitals and I&O: Vital Signs Date Time Temp Pulse Resp B/P B/P Pulse O2 O2 Flow FiO2 Mean Ox Delivery Rate 03/21 0818 94 Room Air 03/21 0610 98.0 81 20 118/80 94 Room Air 03/21 0000 93 Room Air 03/20 2148 98.2 88 22 124/72 93 Room Air 03/20 1620 95 Room Air Room Air 03/20 1600 Room Air 03/20 1434 99.3 87 20 124/76 92 03/20 0928 94 Room Air Room Air Intake & Output 03/21 1600 03/21 0800 03/21 0000 Intake Total 240 500 Output Total Balance 240 500 Intake, Oral 240 500 Physical Exam General Appearance: well developed/nourished, awake, anxious, no distress Head: atraumatic Neck: normal inspection, supple Respiratory: decreased breath sounds, wheezing and ronchi Cardiovascular: regular rate/rhythm Gastrointestinal: normal bowel sounds, soft, non-tender Back: normal inspection Extremities: no edema Results Last 24 Hrs of Lab Results: Laboratory Tests 03/21/17 0850: Sodium Pending, Potassium Pending, Chloride Pending, Carbon Dioxide Pending, Anion Gap Pending, BUN Pending, Creatinine Pending, BUN/Creatinine Ratio Pending 03/21/17 0622: CBC w Diff Pending, WBC Pending, RBC Pending, Hgb Pending, Hct Pending, MCV Pending, MCH Pending, RDW Pending, Plt Count Pending, MPV Pending, Gran % Pending, Lymphocytes % Pending, Monocytes % Pending, Eosinophils % Pending, Basophils % Pending, Absolute Granulocytes Pending, Absolute Lymphocytes Pending , Absolute Monocytes Pending, Absolute Eosinophils Pending, Absolute Basophils Pending, PUBS MCHC Pending Impression/Plan Impression/Plan Impression/Plan: 1. Acute hypoxemic respiratory failure secondary to bronchospasm/acute exacerbation of COPD. the patient is clinically improved, and now on room air. 2. Acute bronchitis. 3. History of renal cell carcinoma status post right nephrectomy. 4. Tobacco use disorder. 5. Leukocytosis, likely secondary to steroids. 6. GPC's in sputum, no evidence of pneumonia on chest x-ray.. Recommendations: * Symbicort - to be given at 8 am and 8 pm. * Spiriva 1 inhalation every day. * Continue nebs/TRC. * Augmentin course to be completed. Monitor for evidence of rash as the patient has had a penicillin allergy in the distant past. * Prednisone taper. * Discharge planning. * Patient will need to follow-up in the COPD clinic within the next 1 week.
[2017-03-21 09:46] LABS: GRANULOCYTE % 83.8 % (42.2-75.2)
--- NOTE | 2017-03-21 11:03 | NUR ---
NURSING NOTE: PATIENT GIVEN AUGMENTIN ABT @ APPROX. 1052 AM. PATIENT HAS ALLERGY TO PCN. EPI IM AT BEDSIDE WITH BENEDRYL LIQUID PO NEEDED. THIS RN SAT WITH PATIENT AT THIS TIME. NO REACTION NOTED. PATIENT INFORMED TO CALL THIS RN IF ANY SIGNS OF REACTION OCCUR.
[2017-03-21] MEDS ORDERED: AUGMENTIN 875-1 EACH PO (11:43)
[2017-03-21] MEDS ORDERED: PREDNISONE20 M1 PO (11:43)
[2017-03-21] MEDS ORDERED: GUAIFENESIN AC473 M2 PO (11:51)
--- NOTE | 2017-03-21 13:03 | NUR ---
NURSING NOTE: NO REACTION TO MEDICATION AUGMENTIN.
--- NOTE | 2017-03-21 13:34 | NUR ---
NURSING NOTE: PATIENT LEFT FLOOR AMBULATING WITH SON TO HOME SELF CARE FOR DISCAHRGE. PATIENT A/OX3, STEADY GAIT, PAIN CONTROLLED AT THIS TIME. PRESCRIPTIONS AND DISCHARGE INSTRUCTIONS GIVEN TO PATIENT. IV DISCONTINUED. ALL BELONGINGS LEFT WITH PATIENT.
--- NOTE | 2017-03-21 17:37 | Discharge Summary ---
Visit Information Visit Dates Admission Date: 03/15/17 Discharge Date: 03/21/17 Hospital Course Course Attending Physician: Brenda Aguilera MD Primary Care Physician: ANKIT HUERTA MD Consulting Request: Consulting Specialty: Pulmonary Disease Consulting Physician: Reason for Consult: COPD exacerbation Hospital Course: Ms. Rahman is a 51-year-old female with a PMH significant for asthma, COPD not on home oxygen and renal cell carcinoma s/p right nephrectomy who presented with clinical symptoms of shortess of breath, low-grade fever and sore throat in the setting a recent acute bronchitis refractory to outpatient therapy. At admission Vitals Tmax of 98.5, pulse 97, on 3 L nasal cannula. Leukocytosis with white count of 14. Chest x-ray significant for bronchial wall thickening suggestive of bronchitis without any focal consolidation. Patient was admitted to the general medicine floor and the following is the management: Acute hypoxemic respiratory failure secondary to strep pneumo infection She was started on IV Azithromycin, IV steroids along with nebulization. she was not on home oxygen - admitted with 3L oxygen requirement. Her oxygen demand remined high for several days despite on IV steroids 40mg Q12. On day 4 of hospitalization her respiratory cultures grew Strep pneumo heavily along with yeast (moderate growth). Repeat CXR on 03/19/17 did not demonstrate any evidence of pneumonia. In addition to Azithromycin she was subsequently started on ceftriaxone IV which dramatically improved her breathing and helped to taper off oxygen to room air on 03/20/17 The results of sensitivities are pending for long time because of yeast growth. Meanwhile patient was transitioned to oral antibiotics. As patient has history of previous hospitalization and there is no suspicion for resistant oragnisms Augmentin was prescribed. She had a history of rash to pencillin during childhood, intial dose was administered in hospital with epinephrine, benadryl at bedside along with closer monitoring. She tolerated the medication well. she was sent home with augmentin for a total of 10days, Bennettusin for cough and a prednisone taper. She will complete her taper by february 28 2017. After discharge she made a call back reporting that she had significant pain in her legs secondary to prednisone - a course of tramadol is prescribed, she called again due to significant unresolving pain for which percocet is prescribed. Mean while her sensitivities are back on 03/22/17 which demonstrated Intermediate resistance pencillins and only sensitive to vancomycin. We had a conversation with patient again -- reported good improvement on augmentin. So we are not making any changes in antibiotic course for now. She will need follow up eventually. Tobacco abuse She smokes one pack per day for the past 30yrs. smoking cessation counseling provided along with Nicotine patch daily History of renal cell carcinoma She is stable currenly with normal Cr (0.9). Please follow up with PCP wtihin 1 week of discharge and surgeon PRN after discharge DVT prophylaxis with SC heparin Complications: None Allergies: Coded Allergies: Penicillins (CHILDHOOD REACTION 03/15/17) duloxetine (UNKNOWN 03/15/17) lamotrigine (From LAMICTAL) (UNKNOWN 03/15/17) ziprasidone (UNKNOWN 03/15/17) Significant Procedures: CXR on 03/15/17 IMPRESSION: Bronchial wall thickening suggests underlying bronchitis, no focal consolidation. CXR repeated after positive cultures on 03/19/17 IMPRESSION: Unremarkable examination. Disposition Summary Disposition Principal Diagnosis: Acute hypoxemic respiratory failure secondary to strep pneumo infection Additional Diagnosis: Tobacco abuse renal cell cancer s/p nephrectomy Discharge Disposition: home or self care Discharge Instructions General Discharge Information Code Status: Full Code Patient's Diet: Regular diet Patient's Activity: Full acitivity Follow-Up Instructions/Appts: Please follow up with your PCP ( ) in a week Please follow up with in a week Please take your medications regularly Medications at Discharge Discharge Medications: Continue taking these medications: Budesonide/Formoterol Fumarate (Symbicort 160-4.5 Mcg Inhaler) 160 MCG-4.5 MCG/ ACTUATION HFA.AER.AD 2 Puff Inhale through mouth TWICE DAILY Qty = 10 Comments: Last Taken: 03/21/17 Time: 0930 AM Albuterol Sulfate (Proair Hfa) 90 MCG HFA.AER.AD 2 Puff Inhale through mouth EVERY 4-6 HOURS NEEDED as needed for COPD Qty = 9 Comments: GIVEN NEBULIZER Last Taken: 03/21/17 Time: 1215 PM Loratadine (Claritin) 10 MG TABLET 1 Tablet ORAL DAILY Comments: Last Taken: 03/21/17 Time: 1000 AM Start taking the following new medications: Prednisone (Prednisone) 20 MG TABLET 0 ORAL SEE INSTRUCTIONS Qty = 13 No Refills Instructions: On Take 03/22/17 50 MG - take 2.5 tabs daily 03/23-03/24 40 MG - take 2 tabs daily 03/25-03/26 30 MG - take 1.5 tabs daily 03/27-03/28 20 MG - take 1 tab daily 03/29-03/30 10 MG - take 0.5 tab daily Then Stop Comments: 5 TABS GIVEN Last Taken: 03/21/17 Time: 0930 AM Amoxicillin/Potassium Clav (Augmentin 875-125 Tablet) 875 MG-125 MG TABLET 1 Tablet ORAL TWICE DAILY Qty = 15 No Refills Comments: Last Taken: 03/21/17 Time: 1100 AM Codeine Phosphate/Guaifenesi (Guaifenesin AC Cough Syrup) 10 MG-100 MG/5 ML LIQUID 10 Milliliters ORAL AT BEDTIME Qty = 1 No Refills Comments: Last Taken: 03/21/17 Time: 0930 AM Copies To: MARK MCKNIGHT,Gerber BRAGG; BRADLEY MCKNIGHT,ANKIT Attending MD Review Statement Documenting Attending: BRENDA AGUILERA MD
== END 2017-03-21 13:35 | DRG 189 ==
LOC: ERH 14:41 → 2NB 17:02 → ERHI 17:02 → ENRESERV 18:02 → ENTRNSPT 18:45 → 2NB 19:12 → CMPTRNSPT 19:22 → 2NB 19:31 → ENPENDDIS 03-21 13:21 → 2NB 03-21 13:35
PROVIDERS: Internal Medicine; Physician Assistant; Student in an Organized Health Care Education/Training Program; ADMIT Internal Medicine
DX: J96.01 Acute respiratory failure with hypoxia (principal); J44.0 Chronic obstructive pulmonary disease with (acute) lower respiratory infection; J44.1 Chronic obstructive pulmonary disease with (acute) exacerbation; J20.9 Acute bronchitis, unspecified; Z85.528 Personal history of other malignant neoplasm of kidney; B95.3 Streptococcus pneumoniae as the cause of diseases classified elsewhere; K21.9 Gastro-esophageal reflux disease without esophagitis; F17.210 Nicotine dependence, cigarettes, uncomplicated
CPT/HCPCS: 2NBSP; 87184; 36415; 82436; 87040; 87070; 87449; 87450; 93005; 93010; 96365; 96375; J0171; J0456; J0696; J1644; J2405; J2920; J2930; J3490; J7040; J7512